=== PATIENT | male | born 1945 | race Caucasian/White ===

== ENCOUNTER 2021-12-17 04:57 | Inpatient (IN) | payer MEDICARE, OTHER ==
[2021-12-17] VITALS (54 sets, daily range): BP systolic 84–142; BP diastolic 26–99
[~2021-12-17] VITALS: Ht 172.7 cm; Wt 74.8 kg
--- NOTE | 2021-12-17 05:05 | NUR ---
BIBRA[facility] FROM [facility] FOR HYPOTENSION 88/59 AT SNF, UPON TRIAGE 91/58 TEMP 101.8 MORE ALTERED THEN NORMAL PER FACILITY. PATIENT NON VERBAL A&OX1 BROUGHT IN BY STRETCHER ON BED 08 ON MONITOR AND POX AWAITING MD MULLINS.
--- NOTE | 2021-12-17 05:07 | NUR ---
COVID SWAB COLLECTED SENT TO LAB
--- NOTE | 2021-12-17 05:07 | NUR ---
IV LINE ESTABLISHED, LFA20G
[2021-12-17] MEDS ORDERED: PIPERACILLIN /TAZOBACTAM 3.375 G VIAL IV ONE (05:22)
[2021-12-17] MEDS ORDERED: VANCOMYCIN 1 GM VIAL ONE (05:22)
--- NOTE | 2021-12-17 05:25 | NUR ---
ER INTERCELL CONNECTOR PLACER AT BEDSIDE FOR BLOOD DRAW
--- NOTE | 2021-12-17 05:25 | NUR ---
URINE COLLECTED AND SENT TO LAB
[2021-12-17] MEDS ORDERED: IV NS 0.9% 1,000 ML BAG IV ONE ×2 (05:30→06:00)
[2021-12-17] MEDS ORDERED: ACETAMINOPHEN 650 MG/SUPP.RECT RC ONE ×2 (05:30→05:36)
[2021-12-17] MEDS ORDERED: PIPERACILLIN /TAZOBACTAM 3.375 G in IV D5W 50 ML IV ONE (05:30)
[2021-12-17] MEDS ORDERED: VANCOMYCIN 1 GM in IV D5W 250 ML IV ONE (05:30)
--- NOTE | 2021-12-17 05:37 | NUR ---
XRAY AT BEDSIDE
[2021-12-17 05:46] LABS: BASOPHILS % (AUTO) 0.1 % (0.0-2.0); HEMATOCRIT 44 % (39-51); HEMOGLOBIN 14.5 g/dL (13.5-17.5); LYMPHOCYTES # (AUTO) 0.3 K/uL (0.8-4.8); LYMPHOCYTES % (AUTO) 3.3 % (20.0-44.0); MEAN CORPUSCULAR HGB CONC 33 g/dl (31.0-36.0); MEAN CORPUSCULAR VOLUME 89 fL (80-96); MONOCYTES # (AUTO) 0.3 K/uL (0.1-1.30); NEUTROPHILS # (AUTO) 7.2 K/uL (1.8-8.9); NEUTROPHILS % (AUTO) 92.6 % (43.0-81.0); PLATELET COUNT (AUTO) 93 K/uL (150-450); RED BLOOD CELL COUNT(AUTO) 4.94 MIL/uL (4.5-6.0); WHITE BLOOD COUNT (AUTO) 7.8 K/uL (4.3-11.0)
[2021-12-17 05:47] LABS: CALCIUM, SERUM 9.1 mg/dL (8.5-10.1); CARBON DIOXIDE 23 mmol/L (21-32); CHLORIDE 105 mmol/L (98-107); CREATININE 2.7 mg/dL (0.6-1.3); GLUCOSE 330 mg/dL (74-106); POTASSIUM 4.4 mmol/L (3.5-5.1); SODIUM SERUM 140 mmol/L (136-145); UREA NITROGEN, BLOOD 70 mg/dL (7-18)
[2021-12-17 05:54] LABS: BILIRUBIN,URINE NEGATIVE (NEGATIVE); COLOR,URINE YELLOW (YELLOW); LEUKOCYTE ESTERASE ,URINE NEGATIVE (NEGATIVE); NITRITE, URINE NEGATIVE (NEGATIVE); PH,URINE 5.5 (5.0-8.0); PROTEIN,URINE TRACE mg/dl (NEGATIVE); UGLUCOSE >=1000 mg/dL (NEGATIVE); UROBILINOGEN,URINE 0.2 EU/dL (0.2)
--- NOTE | 2021-12-17 05:56 | NUR ---
TROP 418 LACTIC ACID 4.04
[2021-12-17] MEDS ORDERED: ONDANSETRON HCL/PF 4 MG/2 ML VIAL ONE (05:57)
[2021-12-17] MEDS ORDERED: ASPIRIN 300 MG/SUPP.RECT RC ONE ×2 (06:00→06:06)
[2021-12-17] MEDS ORDERED: ONDANSETRON HCL/PF 4 MG/2 ML VIAL IV ONE (06:00)
[2021-12-17 06:01] LABS: ALANINE AMINOTRANSFERASE 25 U/L (12-78); ALBUMIN 2.3 g/dL (3.4-5.0); ALKALINE PHOSPHATASE 90 U/L (46-116); ASPARTATE AMINOTRANSFERASE 12 U/L (15-37); BILIRUBIN,DIRECT 0.2 mg/dL (0.0-0.2); BILIRUBIN,TOTAL 0.5 mg/dL (0.2-1.0)
--- NOTE | 2021-12-17 06:07 | NUR ---
FAXED EKG TO [facility]
--- NOTE | 2021-12-17 06:27 | NUR ---
CALLED [facility] SPOKE WITH ALYSE. EKG SENT TO MANAGER COMBINATION DR DURAN, AWAITING A CALL BACK FOR CONSULT.
--- NOTE | 2021-12-17 06:33 | NUR ---
CONSET FOR PICC LINE SIGNED
--- NOTE | 2021-12-17 06:34 | NUR ---
ASAEL LEMOS CALLED FOR PICC NURSE
[2021-12-17] MEDS ORDERED: HEPARIN SODIUM, PORCINE 5000 UNITS/1 ML VIAL IV ONE (07:00)
[2021-12-17] MEDS ORDERED: HEPARIN INFUSION/D5W 500 ML IV ONE ×2 (07:00→07:21)
[2021-12-17] MEDS ORDERED: HEPARIN SODIUM, PORCINE 5000 UNITS/1 ML VIAL ONE (07:04)
--- NOTE | 2021-12-17 07:29 | NUR ---
HEPARIN DRIP STARTED AT 1026 U/H RATE 20.52 ML
--- NOTE | 2021-12-17 07:38 | NUR ---
BED 253
--- NOTE | 2021-12-17 07:45 | NUR ---
MOVE SHEET SUBMITTED.
--- NOTE | 2021-12-17 07:47 | NUR ---
PICC LINE NURSE AT BEDSIDE.
[2021-12-17] MEDS ORDERED: FAMO20TA8 PO (07:56)
[2021-12-17] MEDS ORDERED: ESCI10TA PO (07:56)
[2021-12-17] MEDS ORDERED: FOLI0.8T2 PO (07:56)
[2021-12-17] MEDS ORDERED: SENN-261 PO (07:56)
[2021-12-17] MEDS ORDERED: AMIO200T5 PO (07:56)
[2021-12-17] MEDS ORDERED: ATOR10TA PO (07:56)
[2021-12-17] MEDS ORDERED: BISA10SU11 RC (07:56)
[2021-12-17] MEDS ORDERED: DOCU-141 PO (07:56)
[2021-12-17] MEDS ORDERED: DIVA500T54 PO (07:56)
[2021-12-17] MEDS ORDERED: RIVA10TA PO (07:56)
[2021-12-17] MEDS ORDERED: RISP0.2515 PO (07:56)
[2021-12-17] MEDS ORDERED: ACET-2605 PO (07:56)
[2021-12-17] MEDS ORDERED: IPRA3AMP23 IH (07:56)
[2021-12-17] MEDS ORDERED: AMIN30LI2 PO (07:56)
[2021-12-17] MEDS ORDERED: MAGN400O6 PO (07:56)
[2021-12-17] MEDS ORDERED: NA P133E RC (07:56)
[2021-12-17] MEDS ORDERED: PRED20TA PO (07:56)
[2021-12-17] MEDS ORDERED: ASCO-495 PO (07:56)
[2021-12-17] MEDS ORDERED: NOREPINEPHRINE 8 MG in IV NS 0.9% 242 ML IV PRN ×2 (08:00→08:30)
--- NOTE | 2021-12-17 08:00 | NUR ---
[facility] CALLED ORACLE TECHNICAL ARCHITECT PAGED.
[2021-12-17 08:07] LABS: BAND % (MANUAL) 12 % (0.0-5.0); LYMPHOCYTES % (MANUAL) 6 % (16-48); MONOCYTES % (MANUAL) 5 % (0-11.0); NEUTROPHILS % (MANUAL) 77 (42-76)
--- NOTE | 2021-12-17 08:28 | NUR ---
LACTIC ACID IS 5.6 TRIPONIN 412.6 MD NOTIFIED.
[2021-12-17] MEDS ORDERED: ACETAMINOPHEN ES 500 MG TABLET PO PRN (09:30)
[2021-12-17] MEDS ORDERED: MAGNESIUM HYDROXIDE 30 ML UDC PO PRN (09:30)
[2021-12-17] MEDS ORDERED: ASCORBIC ACID 250 MG TABLET PO SCH (09:30)
[2021-12-17] MEDS ORDERED: BISACODYL SUPP (10 MG) 10 MG/SUPP.RECT SUPP.RECT RC PRN (09:30)
--- NOTE | 2021-12-17 10:40 | NUR ---
REPORT GIVEN TO RAJINDER, CLIENT EXPERIENCE ADMINISTRATOR
--- NOTE | 2021-12-17 10:48 | NUR ---
ADMITTED PT. FROM E.R , A/O X1 TO NAME; ON HEPARIN DRIP AT 1026 UNITS/HR AND LEVO DRIP AT 0.2MCG/KG/MIN, REPORT GIVEN BY ELVIA /KEEGAN. NC AT 2LPM AT 93%O2SAT.WILL CONTINUE PT. MONITORING.
--- NOTE | 2021-12-17 10:59 | NUR ---
PT TRANSFERRED TO 253 VIA ACLS PROTOCOL. WARM HANDOFF GIVEN TO KEEGAN CALVILLO.
[2021-12-17] MEDS: DOCUSATE SODIUM 100 MG CAPSULE PO SCH (11:00)
[2021-12-17] MEDS: FAMOTIDINE (20 MG) 20 MG TABLET PO SCH (11:00)
[2021-12-17] MEDS: AMIODARONE HCL 200 MG TABLET PO SCH (11:00)
[2021-12-17] MEDS: ESCITALOPRAM OXALATE (10 MG) 10 MG TABLET PO SCH (11:00)
[2021-12-17] MEDS: ASCORBIC ACID 500 MG TABLET PO SCH (11:00)
[2021-12-17] MEDS: predniSONE 20 MG TABLET PO SCH (11:00)
[2021-12-17] MEDS ORDERED: HYDROCODONE/APAP 5/325MG TABLET PO PRN (11:30)
[2021-12-17] MEDS ORDERED: ONDANSETRON HCL/PF 4 MG/2 ML VIAL IVP PRN (11:30)
[2021-12-17] MEDS ORDERED: ACETAMINOPHEN 325 MG TABLET PO PRN (11:30)
[2021-12-17] MEDS ORDERED: Z GUARD REMEDY 4 OZ OINT TP PRN (11:30)
[2021-12-17] MEDS: NOREPINEPHRINE 8 MG in IV NS 0.9% 242 ML IV PRN ×3 (11:56→23:06)
--- NOTE | 2021-12-17 12:03 | NUR ---
DR. TIKI Elaine. SEEN PT. , MD WITH NEW ORDER NOTED FOR BEDSIDE SWALLOW EVAL AND HOLD DUE ORAL MEDS AND DIET IF PT. FAILS SWALLOW TEST.
--- NOTE | 2021-12-17 12:19 | NUR ---
DR. TIKI Nguyen WAS NOTIFIED VIA MESSAGE REGARDING CURRENT TROPONIN LEVEL = 416.
--- NOTE | 2021-12-17 12:23 | NUR ---
DR. TIKI Nguyen - NO NEW ORDER REGARDING CURRENT TROPONIN LEVEL = 416.
[2021-12-17] MEDS: MEROPENEM 500 MG in IV NS 0.9% 50 ML IV SCH ×2 (12:49→23:29)
[2021-12-17] MEDS: IV NS 0.9% 1,000 ML IV PRN (12:49)
[2021-12-17] MEDS: PROSTAT (PYXIS) 30 ML UDC PO SCH ×2 (13:00→17:00)
[2021-12-17] MEDS: ALBUTEROL FS 2.5 MG/3 ML VIAL.NEB NEB SCH ×2 (13:30→19:49)
[2021-12-17] MEDS: IPRATROPIUM NEB FS 0.5 MG/2.5 ML AMPUL.NEB NEB SCH ×2 (13:30→19:49)
--- NOTE | 2021-12-17 14:30 | NUR ---
PATIENT FAILED BEDSIDE SWALLOW EVAL SCREENING TEST. PT. STARTED COUGHING WHEN TEST INITIATED WITH ICE CHIPS AND SIP OF WATER. PT. NO ACUTE DISTRESS NOTED.
--- NOTE | 2021-12-17 15:08 | NUR ---
DR TIKI Nguyen MADE AWARE OF THE FAILED BEDSIDE SWALLOW TEST, NEW MD ORDER FOR ST SWALLOW EVAL NOTED.
[2021-12-17] MEDS: risperiDONE 1 MG TABLET PO SCH (17:00)
[2021-12-17] MEDS: DIVALPROEX SODIUM 500 MG TABLET.DR PO SCH (18:00)
[2021-12-17] MEDS: ATORVASTATIN 10 MG TABLET PO SCH (18:00)
[2021-12-17] MEDS: HEPARIN INFUSION/D5W 500 ML IV PRN (18:29)
[2021-12-17] MEDS: SENNOSIDES 8.6 MG TABLET PO SCH (20:23)
--- NOTE | 2021-12-17 21:48 | NUR ---
GEAR TOOTH GRINDING MACHINE OPERATOR PT NOTED TO GO INTO RAPID AFIB HR 150s; OBTAINED EKG NOTIFIED LYNDON BAIRES; RCD ORDERS FOR AMIO DRIP.
[2021-12-17] MEDS ORDERED: AMIODARONE 150 MG/3 ML VIAL IV ONE (21:55)
[2021-12-17] MEDS ORDERED: AMIODARONE 150 MG in IV D5W 100 ML IV ONE ×4 (22:00)
[2021-12-17] MEDS ORDERED: ZOLPIDEM TARTRATE 5 MG TABLET PO PRN (22:00)
[2021-12-17] MEDS ORDERED: AMIODARONE 450 MG in IV D5W 241 ML IV PRN (22:00)
[2021-12-17] MEDS: AMIODARONE 450 MG in IV D5W 241 ML IV PRN (22:16)
--- NOTE | 2021-12-17 22:45 | NUR ---
RAC SPECIALIST PT NOTED LETHARGIC W/ INCREASED RR; ABG ORDERED. RESULTS RELAYED TO CCATALAN VOTING MACHINE REPAIRER.
[2021-12-17 22:56] LABS: ABG BASE EXCESS -5.2 mmol/L; ABG OXYGEN SATURATION 95.4 % (92.0-98.5); ABG PCO2 31.5 mmHg (35.0-45.0); ABG PO2 79.9 mmHg (75.0-100.0); AaDO2 82.6 mmHg; COHb 0.7 % (0.5-1.5); MetHb 0.5 % (0.0-1.5); O2Hb 94.3 % (94.0-97.0); SITE, ABG Left Radial; VENT MODE, BG NC 2L
--- NOTE | 2021-12-17 23:30 | NUR ---
CUPOLA PATCHER HELPER PT NOTED NSR ON MONITOR
[2021-12-18] VITALS (94 sets, daily range): BP systolic 86–132; BP diastolic 45–74
[2021-12-18] MEDS: ALBUTEROL FS 2.5 MG/3 ML VIAL.NEB NEB SCH ×5 (01:38→20:04)
[2021-12-18] MEDS: IPRATROPIUM NEB FS 0.5 MG/2.5 ML AMPUL.NEB NEB SCH ×5 (01:38→20:04)
[2021-12-18] MEDS: IV NS 0.9% 1,000 ML IV PRN ×2 (01:45→15:09)
[2021-12-18 05:12] LABS: BASOPHILS % (AUTO) 0.1 % (0.0-2.0); EOSINOPHILS % (AUTO) 0.1 % (0.0-6.0); HEMATOCRIT 37 % (39-51); LYMPHOCYTES # (AUTO) 0.3 K/uL (0.8-4.8); LYMPHOCYTES % (AUTO) 2.8 % (20.0-44.0); MEAN CORPUSCULAR HGB CONC 33 g/dl (31.0-36.0); MEAN CORPUSCULAR VOLUME 90 fL (80-96); MONOCYTES # (AUTO) 0.4 K/uL (0.1-1.30); MONOCYTES % (AUTO) 4.1 % (2.0-12.0); NEUTROPHILS # (AUTO) 8.4 K/uL (1.8-8.9); NEUTROPHILS % (AUTO) 92.9 % (43.0-81.0); PLATELET COUNT (AUTO) 84 K/uL (150-450); RED BLOOD CELL COUNT(AUTO) 4.09 MIL/uL (4.5-6.0)
[2021-12-18 05:40] LABS: ALANINE AMINOTRANSFERASE 20 U/L (12-78); ALBUMIN 1.7 g/dL (3.4-5.0); ALKALINE PHOSPHATASE 70 U/L (46-116); ASPARTATE AMINOTRANSFERASE 13 U/L (15-37); BILIRUBIN,TOTAL 0.4 mg/dL (0.2-1.0); CALCIUM, SERUM 8.2 mg/dL (8.5-10.1); CARBON DIOXIDE 22 mmol/L (21-32); CHLORIDE 110 mmol/L (98-107); CREATININE 2.9 mg/dL (0.6-1.3); PHOSPHORUS 5.8 mg/dL (2.5-4.9); POTASSIUM 4.2 mmol/L (3.5-5.1); SODIUM SERUM 142 mmol/L (136-145); TOTAL PROTEIN, SERUM 5.1 g/dL (6.4-8.2); UREA NITROGEN, BLOOD 73 mg/dL (7-18)
[2021-12-18 05:49] LABS: CHOLESTEROL 80 mg/dL (<200); GLUCOSE 365 mg/dL (74-106); HDL CHOLESTEROL 14 mg/dL (40-60); LDL 17 mg/dL (0-99); THYROID STIMULATING HORMONE 0.621 uIU/mL (0.358-3.74); TRIGLYCERIDES 251 mg/dL (30-150)
[2021-12-18] MEDS: AMIODARONE 450 MG in IV D5W 241 ML IV PRN (06:45)
--- NOTE | 2021-12-18 07:23 | NUR ---
WOUND CARE CONSULT: PT SLEEPING SOUNDLY AT THIS TIME. REVIEWED CHART, NURSING DOCUMENTATION AND PHOTOS WHICH INDICATE SACRAL DEEP TISSUE INJURY (INTACT) AND SCARRING WELL REDNESS TO GROIN FOLDS/SCROTUM, PRESENT ON ADMISSION. RECOMMENDATIONS MADE FOR SKIN PROTECTION. DISCUSSED WITH NURSING STAFF. MD IN AGREEMENT WITH PLAN OF CARE.
[2021-12-18] MEDS ORDERED: DEXTROSE 50%-WATER 50 ML DISP.SYRIN IV PRN (07:30)
--- NOTE | 2021-12-18 07:45 | NUR ---
ICU/RN PT IS RESTING IN THE BED ON 2L N/C SAT O2-97%.AFEBRILE.ON LEVOPHED ,AMIODARONE,AND HEPARIN DRIPS .RIGHT CHEST HD CATH.LEFT UPPER ARM PICC LINE.DIAPER ON.LABS REVIEW.MD NOTIFIED.CONTINUE MONITORING.
[2021-12-18] MEDS: risperiDONE 1 MG TABLET PO SCH ×2 (08:19→16:05)
[2021-12-18] MEDS: VIT B CMPLX 3/FA/VIT C/BIOTIN 1 TAB TABLET PO SCH (08:19)
[2021-12-18] MEDS: predniSONE 20 MG TABLET PO SCH (08:20)
[2021-12-18] MEDS: DOCUSATE SODIUM 100 MG CAPSULE PO SCH (08:20)
[2021-12-18] MEDS: ASCORBIC ACID 500 MG TABLET PO SCH (08:20)
[2021-12-18] MEDS: PANTOPRAZOLE 40 MG TABLET.DR PO SCH (08:20)
[2021-12-18] MEDS: AMIODARONE HCL 200 MG TABLET PO SCH (08:20)
[2021-12-18] MEDS: ESCITALOPRAM OXALATE (10 MG) 10 MG TABLET PO SCH (08:20)
[2021-12-18] MEDS: FAMOTIDINE (20 MG) 20 MG TABLET PO SCH (08:20)
[2021-12-18] MEDS: CLOTRIMAZOLE 1% 15 GM TUBE TP SCH ×2 (08:22→11:24)
[2021-12-18] MEDS: PROSTAT (PYXIS) 30 ML UDC PO SCH ×3 (08:23→17:15)
--- NOTE | 2021-12-18 09:32 | NUR ---
ICU/RN DUE MEDS ARE GIVEN ORDERED. SWALLOW EVAL DONE ,OK TO GIVE PURRED FOOD.NO STRAW.
[2021-12-18 09:35] LABS: BAND % (MANUAL) 28 % (0.0-5.0); LYMPHOCYTES % (MANUAL) 3 % (16-48); METAMYELOCYTES % 2 % (0-0); MONOCYTES % (MANUAL) 5 % (0-11.0); MYELOCYTES % 2 % (0-0); NEUTROPHILS % (MANUAL) 60 (42-76)
[2021-12-18] MEDS: BLOOD SUGAR DIAGNOSTIC 1 EACH STRIP IN SCH ×3 (11:19→23:34)
[2021-12-18] MEDS: MEROPENEM 500 MG in IV NS 0.9% 50 ML IV SCH ×2 (11:19→23:29)
[2021-12-18] MEDS: INSULIN REGULAR, HUMAN 100 UNIT/ML 3 ML VIAL SQ PRN ×3 (11:21→23:39)
[2021-12-18] MEDS: HEPARIN INFUSION/D5W 500 ML IV PRN (11:52)
[2021-12-18] MEDS ORDERED: NEPRO VAN 237 ML CAN PO PRN (12:00)
[2021-12-18] MEDS ORDERED: VANCOMYCIN 500 MG in IV D5W 100 ML IV PRN (12:00)
[2021-12-18] MEDS: DIVALPROEX SODIUM 500 MG TABLET.DR PO SCH (17:14)
[2021-12-18] MEDS: ATORVASTATIN 10 MG TABLET PO SCH (17:14)
--- NOTE | 2021-12-18 17:30 | NUR ---
ICU/RN PM CARE PROVIDED.DUE MEDS ARE GIVEN ORDERED.PT EATS 75% FROM HIS MEAL TRAY.CONTINUE MONITORING
--- NOTE | 2021-12-18 19:49 | NUR ---
RN NOTE RECEIVED PT SLEEPING, AROUSES EASILY, AOX1. O2 O2 AT 2L VIA NC, NOT IN ANY DISTRESS. SR ON TELE MONITOR. AFEBRILE. ON AMIODARONE DRIP 0.5MG/MIN, HEPARIN DRIP 630U/HR, LEVOPHED AT 0.04MCG/KG/MIN AND IVF NS 75ML/HR RUNNING. CLIFF PICC PATENT AND INTACT, LCW HD CATH INTACT. ALL SAFETY MEASURES IN PLACE. WILL CONTINUE TO MONITOR.
[2021-12-18] MEDS: NOREPINEPHRINE 8 MG in IV NS 0.9% 242 ML IV PRN (20:47)
[2021-12-18] MEDS: SENNOSIDES 8.6 MG TABLET PO SCH (21:13)
[2021-12-19] VITALS (98 sets, daily range): BP systolic 85–134; BP diastolic 30–80
[2021-12-19] MEDS: ALBUTEROL FS 2.5 MG/3 ML VIAL.NEB NEB SCH ×4 (02:00→20:02)
[2021-12-19] MEDS: IPRATROPIUM NEB FS 0.5 MG/2.5 ML AMPUL.NEB NEB SCH ×4 (02:00→20:02)
[2021-12-19 04:41] LABS: BASOPHILS % (AUTO) 0.2 % (0.0-2.0); EOSINOPHILS % (AUTO) 0.1 % (0.0-6.0); HEMATOCRIT 32 % (39-51); HEMOGLOBIN 10.8 g/dL (13.5-17.5); LYMPHOCYTES # (AUTO) 0.2 K/uL (0.8-4.8); LYMPHOCYTES % (AUTO) 4.3 % (20.0-44.0); MEAN CORPUSCULAR HGB CONC 33 g/dl (31.0-36.0); MEAN CORPUSCULAR VOLUME 89 fL (80-96); MONOCYTES # (AUTO) 0.2 K/uL (0.1-1.30); MONOCYTES % (AUTO) 3.6 % (2.0-12.0); NEUTROPHILS # (AUTO) 4.6 K/uL (1.8-8.9); NEUTROPHILS % (AUTO) 91.8 % (43.0-81.0); PLATELET COUNT (AUTO) 71 K/uL (150-450); RED BLOOD CELL COUNT(AUTO) 3.63 MIL/uL (4.5-6.0)
--- NOTE | 2021-12-19 05:28 | NUR ---
RN NOTE PTT 47.8. NO CHANGES ON DOSE PER PROTOCOL, CONTINUE ON HEPARIN DRIP AT 630 U/HR.
[2021-12-19 05:37] LABS: ALANINE AMINOTRANSFERASE 35 U/L (12-78); ALBUMIN 1.6 g/dL (3.4-5.0); ASPARTATE AMINOTRANSFERASE 17 U/L (15-37); CALCIUM, SERUM 8.4 mg/dL (8.5-10.1); CARBON DIOXIDE 23 mmol/L (21-32); CHLORIDE 113 mmol/L (98-107); CREATININE 2.7 mg/dL (0.6-1.3); GLUCOSE 132 mg/dL (74-106); PHOSPHORUS 4.9 mg/dL (2.5-4.9); SODIUM SERUM 146 mmol/L (136-145); UREA NITROGEN, BLOOD 71 mg/dL (7-18)
[2021-12-19] MEDS: BLOOD SUGAR DIAGNOSTIC 1 EACH STRIP IN SCH ×3 (05:47→17:45)
--- NOTE | 2021-12-19 05:48 | NUR ---
RN NOTE PT AWAKE, FSBS 96. NO INSULIN COVERAGE.
[2021-12-19 05:56] LABS: ALKALINE PHOSPHATASE 67 U/L (46-116); BILIRUBIN,TOTAL 0.2 mg/dL (0.2-1.0); TOTAL PROTEIN, SERUM 5.1 g/dL (6.4-8.2)
[2021-12-19] MEDS: IV NS 0.9% 1,000 ML IV PRN ×2 (05:57→17:54)
--- NOTE | 2021-12-19 07:11 | NUR ---
RN NOTE PT KEPT ON ASKING FOR WATER, ON NECTAR THICKENED LIQUIDS. TOLERATES O2 AT 2L. NOT IN ANY DISTRESS. CONTINUE WITH LEVOPHED NOW ON 0.02MCG/KG/MIN AND NS AT 75 ML/HR. PT WITH CONDOM CATH, WITH GOOD AMOUNT OF URINE OUTPUT. PT REMAIN AFEBRILE. PT SCHEDULED FOR HD TODAY, BLOOD CULTURE WITH HD. ENDORSED TO RAJINDER FOR DURGA.
[2021-12-19] MEDS: ASCORBIC ACID 500 MG TABLET PO SCH (08:13)
[2021-12-19] MEDS: DOCUSATE SODIUM 100 MG CAPSULE PO SCH (08:13)
[2021-12-19] MEDS: risperiDONE 1 MG TABLET PO SCH ×2 (08:14→17:52)
[2021-12-19] MEDS: ESCITALOPRAM OXALATE (10 MG) 10 MG TABLET PO SCH (08:14)
[2021-12-19] MEDS: VIT B CMPLX 3/FA/VIT C/BIOTIN 1 TAB TABLET PO SCH (08:14)
[2021-12-19] MEDS: FAMOTIDINE (20 MG) 20 MG TABLET PO SCH (08:14)
[2021-12-19] MEDS: predniSONE 20 MG TABLET PO SCH (08:14)
[2021-12-19] MEDS: PANTOPRAZOLE 40 MG TABLET.DR PO SCH (08:14)
[2021-12-19] MEDS: AMIODARONE HCL 200 MG TABLET PO SCH (08:15)
[2021-12-19] MEDS: CLOTRIMAZOLE 1% 15 GM TUBE TP SCH ×2 (08:16→17:53)
[2021-12-19] MEDS: PROSTAT (PYXIS) 30 ML UDC PO SCH ×3 (08:17→17:52)
[2021-12-19 08:59] LABS: BAND % (MANUAL) 18 % (0.0-5.0); LYMPHOCYTES % (MANUAL) 7 % (16-48); METAMYELOCYTES % 2 % (0-0); MONOCYTES % (MANUAL) 5 % (0-11.0); MYELOCYTES % 2 % (0-0); NEUTROPHILS % (MANUAL) 66 (42-76)
--- NOTE | 2021-12-19 09:40 | NUR ---
HEMODIALYSIS TREATMENT STARTED; NO ACUTE DISTRESS NOTED.
--- NOTE | 2021-12-19 11:55 | NUR ---
PT HEART RATE 127 NOW. WILL CONTINUE TO MONITOR
--- NOTE | 2021-12-19 12:00 | NUR ---
HEMODIALYSIS SESSION DONE, OUTPUT=1.5 LITERS. HR RANGING AND FLUCTUATING FROM 127-150s. WILL NOTIFY MD, NO ACUTE DISTRESS NOTED.
--- NOTE | 2021-12-19 12:02 | NUR ---
DR. POOLE WAS NOTIFIED OF HEART RHYTHM FROM SR TO NOW AFIB AND HR RANGING AND FLUCTUATING 125-150s; AND AWARE OF LEVO DRIP RUNNING AT 0.04 MCG NOW. BP = 94/65. WITH NEW ORDER OF AMIO BOLUS AND DRIP. ALL ORDERS NOTED AND WILL CARRY OUT.
[2021-12-19] MEDS: MEROPENEM 500 MG in IV NS 0.9% 50 ML IV SCH (12:27)
[2021-12-19] MEDS ORDERED: AMIODARONE 150 MG in IV D5W 100 ML IV ONE (12:30)
[2021-12-19] MEDS: AMIODARONE 450 MG in IV D5W 241 ML IV PRN ×2 (12:51→21:13)
[2021-12-19] MEDS ORDERED: VANCOMYCIN 1 GM in IV D5W 250ml IV ONE (13:00)
[2021-12-19] MEDS: INSULIN REGULAR, HUMAN 100 UNIT/ML 3 ML VIAL SQ PRN ×2 (13:05→17:44)
[2021-12-19] MEDS: ATORVASTATIN 10 MG TABLET PO SCH (17:52)
[2021-12-19] MEDS: DIVALPROEX SODIUM 500 MG TABLET.DR PO SCH (17:53)
--- NOTE | 2021-12-19 20:50 | NUR ---
ICU/CAR WASH ATTENDANT PT REFUSED TO BE TURNED, EXPLAINED THE BENEFITS TO REPOSITIONING SINCE PT HAS DOCUMENTATION WITH SACRAL SKIN BREAKDOWN. PT STILL REFUSED. WILL CONTINUE TO MONITOR AND ASK TO REPOSITION THIS PT.
[2021-12-19] MEDS: SENNOSIDES 8.6 MG TABLET PO SCH (22:35)
--- NOTE | 2021-12-19 22:45 | NUR ---
ICU/AUDIO VISUAL TECH BLOOD PRESSURE HAS FLUCTUATED AT THIS TIME WITH ACTIVE TITRATION, SEE IV SPREAD SHEET FOR THIS. WILL CONTINUE TO MONITOR THIS PT AND HIS BLOOD PRESSURE.
[2021-12-20] VITALS (96 sets, daily range): BP systolic 89–131; BP diastolic 41–98
--- NOTE | 2021-12-20 00:15 | NUR ---
ICU/MIXED CROP AND LIVESTOCK FARMER WAS ABLE TO TURN AND REPOSITION, PT REFUSED TO HAVE AM CARE AT THIS TIME. ASKED IF OK IN THE MORNING FOR AM CARE, PT AGREED TO THIS
[2021-12-20] MEDS: INSULIN REGULAR, HUMAN 100 UNIT/ML 3 ML VIAL SQ PRN ×5 (00:20→23:54)
[2021-12-20] MEDS: BLOOD SUGAR DIAGNOSTIC 1 EACH STRIP IN SCH ×5 (00:20→23:52)
[2021-12-20] MEDS: MEROPENEM 500 MG in IV NS 0.9% 50 ML IV SCH ×3 (00:25→23:52)
[2021-12-20] MEDS: IPRATROPIUM NEB FS 0.5 MG/2.5 ML AMPUL.NEB NEB SCH ×4 (01:58→19:44)
[2021-12-20] MEDS: ALBUTEROL FS 2.5 MG/3 ML VIAL.NEB NEB SCH ×4 (01:58→19:44)
--- NOTE | 2021-12-20 02:35 | NUR ---
ICU/CIDER MAKER PT REFUSED TO BE TURNED FOR A SECOND TIME, EXPLAINED TO PT THE BENEFITS TO REPOSITIONING SINCE PT HAS DOCUMENTATION WITH SACRAL SKIN BREAKDOWN. PT AT THIS TIME STILL REFUSED. PLACED PILLOW OVER FACE AND SAID "GOOD NIGHT" WILL CONTINUE TO MONITOR AND ASK TO PT TO BE REPOSITIONED.
[2021-12-20] MEDS ORDERED: NOREPINEPHRINE 8MG/250ML RTU 250 ML IV ONE (03:33)
[2021-12-20] MEDS: NOREPINEPHRINE 8 MG in IV NS 0.9% 242 ML IV PRN (03:37)
[2021-12-20] MEDS: IV NS 0.9% 1,000 ML IV PRN ×2 (04:13→16:49)
[2021-12-20 04:14] LABS: CALCIUM, SERUM 7.9 mg/dL (8.5-10.1); CARBON DIOXIDE 23 mmol/L (21-32); CHLORIDE 105 mmol/L (98-107); CREATININE 2.1 mg/dL (0.6-1.3); GLUCOSE 266 mg/dL (74-106); POTASSIUM 3.8 mmol/L (3.5-5.1); SODIUM SERUM 138 mmol/L (136-145); UREA NITROGEN, BLOOD 47 mg/dL (7-18)
[2021-12-20 04:18] LABS: BASOPHILS % (AUTO) 0.1 % (0.0-2.0); EOSINOPHILS % (AUTO) 0.1 % (0.0-6.0); HEMATOCRIT 30 % (39-51); LYMPHOCYTES # (AUTO) 0.3 K/uL (0.8-4.8); LYMPHOCYTES % (AUTO) 5.8 % (20.0-44.0); MEAN CORPUSCULAR HGB CONC 33 g/dl (31.0-36.0); MEAN CORPUSCULAR VOLUME 89 fL (80-96); MONOCYTES # (AUTO) 0.2 K/uL (0.1-1.30); MONOCYTES % (AUTO) 4.1 % (2.0-12.0); NEUTROPHILS # (AUTO) 4.5 K/uL (1.8-8.9); NEUTROPHILS % (AUTO) 89.9 % (43.0-81.0); PLATELET COUNT (AUTO) 80 K/uL (150-450); RED BLOOD CELL COUNT(AUTO) 3.38 MIL/uL (4.5-6.0)
[2021-12-20 04:23] LABS: MAGNESIUM 1.9 mg/dL (1.8-2.4)
[2021-12-20 04:50] LABS: IRON, SERUM 55 ug/dl (50-175); TOTAL IRON BINDING CAPACITY 84 ug/dl (250-450)
[2021-12-20] MEDS ORDERED: VANCOMYCIN 500 MG in IV D5W 100 ML IV PRN (06:00)
--- NOTE | 2021-12-20 07:26 | NUR ---
RN NOTE PATIENT RECEIVED IN BED, RESTING. PATIENT ON 2L O2 NC WITH NO SIGNS OF LABORED BREATHING SAT 97% ON BEDSIDE MONITOR. CURRENTLY AFIB ON MONITOR HR 105-110 ON AMIODARONE DRIP AT 0.5MG/MIN. RIGHT CHEST WALL PERMACATH IN PLACE. LEFT UA PICC AND LEFT FA 20G IN PLACE RUNNING LEVO AT 0.08MCG/KG/MIN BP 116/67, AMIODARONE DRIP AND NS AT 75CC/HR. BED LOCKED AND IN LOWEST POSITION, CALL LIGHT WITHIN REACH, 3 SIDE RAILS UP.
[2021-12-20] MEDS: VIT B CMPLX 3/FA/VIT C/BIOTIN 1 TAB TABLET PO SCH (08:02)
[2021-12-20] MEDS: risperiDONE 1 MG TABLET PO SCH ×2 (08:02→17:05)
[2021-12-20] MEDS: DOCUSATE SODIUM 100 MG CAPSULE PO SCH (08:02)
[2021-12-20] MEDS: predniSONE 20 MG TABLET PO SCH (08:02)
[2021-12-20] MEDS: PANTOPRAZOLE 40 MG TABLET.DR PO SCH (08:02)
[2021-12-20] MEDS: ESCITALOPRAM OXALATE (10 MG) 10 MG TABLET PO SCH (08:02)
[2021-12-20] MEDS: CLOTRIMAZOLE 1% 15 GM TUBE TP SCH ×2 (08:03→17:05)
[2021-12-20] MEDS: PROSTAT (PYXIS) 30 ML UDC PO SCH ×3 (08:03→17:05)
[2021-12-20] MEDS: ASCORBIC ACID 500 MG TABLET PO SCH (08:03)
[2021-12-20] MEDS: FAMOTIDINE (20 MG) 20 MG TABLET PO SCH (08:03)
--- NOTE | 2021-12-20 11:40 | NUR ---
RN NOTE PT CONVERTED TO NSR. AMIODARONE DRIP TO FINISH AT 1300. DR. POOLE NOTIFIED. NO NEW ORDER AT THIS TIME.
[2021-12-20] MEDS: ATORVASTATIN 10 MG TABLET PO SCH (17:04)
[2021-12-20] MEDS: DIVALPROEX SODIUM 500 MG TABLET.DR PO SCH (17:05)
--- NOTE | 2021-12-20 18:32 | NUR ---
RN NOTE PATIENT REMAINS IN BED, AWAKE. PATIENT ON 2L O2 NC WITH NO SIGNS OF LABORED BREATHING SAT 99% ON BEDSIDE MONITOR. CURRENTLY NSR ON MONITOR HR 91. RIGHT CHEST WALL PERMACATH IN PLACE. LEFT UA PICC AND LEFT FA 20G IN PLACE RUNNING NS AT 75CC/HR. BED LOCKED AND IN LOWEST POSITION, CALL LIGHT WITHIN REACH, 3 SIDE RAILS UP. ALL NEEDS ATTENDED DURING SHIFT. WILL ENDORSE TO ANIMAL STUNNER NURSE FOR DURGA.
--- NOTE | 2021-12-20 20:05 | NUR ---
RN OPENING NOTES RECEIVED PATIENT ON BED, AWAKE, A/O 3-4, VERBALLY RESPONSIVE. ON NASAL CANULA @ 2LPM SATING AT 98%. RESPIRATORY EVEN AND UNLABORED, NO SOB NOTED. AFEBRILE, NO S/S OF DISTRESS NOTED. PATIENT CLIFF PICC LINE, LEFT FOREARM #20, FLUSHED WITH NS, NO S/S OF INFILTRATION NOTED AT SITE. WITH IVF OF NS @ 75 ML/HR. RIGHT CHEST WALL PERMA CATH FOR DIALYSIS, DRESSING INTACT NO ACTIVE BLEEDING NOTED. ON CONDOM CATHETER INTACT DRAINING WITH CLEAR YELLOW URINE OUTPUT VIA GRAVITY. ALL SAFETY MEASURE PROVIDED. BED IN LOWEST POSITION, LOCKED. BED ALARM ARMED. CONTINUE TO MONITOR.
[2021-12-20] MEDS: SENNOSIDES 8.6 MG TABLET PO SCH (22:02)
[2021-12-21] VITALS (43 sets, daily range): BP systolic 98–127; BP diastolic 46–73
[2021-12-21] MEDS: IPRATROPIUM NEB FS 0.5 MG/2.5 ML AMPUL.NEB NEB SCH ×5 (01:25→20:18)
[2021-12-21] MEDS: ALBUTEROL FS 2.5 MG/3 ML VIAL.NEB NEB SCH ×5 (01:25→20:18)
[2021-12-21 04:08] LABS: EOSINOPHILS % (AUTO) 0.1 % (0.0-6.0); HEMATOCRIT 28 % (39-51); HEMOGLOBIN 9.1 g/dL (13.5-17.5); LYMPHOCYTES # (AUTO) 0.1 K/uL (0.8-4.8); MEAN CORPUSCULAR HGB CONC 33 g/dl (31.0-36.0); MEAN CORPUSCULAR VOLUME 91 fL (80-96); MONOCYTES # (AUTO) 0.1 K/uL (0.1-1.30); MONOCYTES % (AUTO) 4.5 % (2.0-12.0); NEUTROPHILS # (AUTO) 2.6 K/uL (1.8-8.9); NEUTROPHILS % (AUTO) 91.4 % (43.0-81.0); PLATELET COUNT (AUTO) 61 K/uL (150-450); RED BLOOD CELL COUNT(AUTO) 3.08 MIL/uL (4.5-6.0); WHITE BLOOD COUNT (AUTO) 2.9 K/uL (4.3-11.0)
[2021-12-21 04:32] LABS: CALCIUM, SERUM 7.9 mg/dL (8.5-10.1); CARBON DIOXIDE 24 mmol/L (21-32); CHLORIDE 108 mmol/L (98-107); GLUCOSE 229 mg/dL (74-106); MAGNESIUM 1.9 mg/dL (1.8-2.4); PHOSPHORUS 3.9 mg/dL (2.5-4.9); POTASSIUM 3.7 mmol/L (3.5-5.1); SODIUM SERUM 140 mmol/L (136-145); UREA NITROGEN, BLOOD 44 mg/dL (7-18)
[2021-12-21 04:46] LABS: BAND % (MANUAL) 14 % (0.0-5.0); BASOPHILS % (MANUAL) 0 % (0.0-2.0); EOSINOPHILS % (MANUAL) 0 % (0-4); LYMPHOCYTES % (MANUAL) 8 % (16-48); MONOCYTES % (MANUAL) 6 % (0-11.0); MYELOCYTES % 1 % (0-0); NEUTROPHILS % (MANUAL) 71 (42-76)
[2021-12-21] MEDS: BLOOD SUGAR DIAGNOSTIC 1 EACH STRIP IN SCH ×4 (05:55→23:41)
[2021-12-21] MEDS: INSULIN REGULAR, HUMAN 100 UNIT/ML 3 ML VIAL SQ PRN ×4 (05:57→23:43)
[2021-12-21] MEDS: IV NS 0.9% 1,000 ML IV PRN (06:53)
--- NOTE | 2021-12-21 07:00 | NUR ---
RN NOTES RECEIVED PT ON BED, A/Ox2, ON 2L O2 N/C , ON TELE SR HR 80'S, CONDOM CATH DRAINING TO GRAVITY, IV SITE CLEAN, DRY AND INTACT, SR UP x3, CALL LIGHT WITHIN EASY REACH, BED LOCKED AND IN LOWEST POSITION, CONTINUE TO MONITOR.
--- NOTE | 2021-12-21 07:19 | NUR ---
RN NOTES PATIENT REMAIN STABLE THROUGH OUT THE SHIFT. RESPIRATORY EVEN AND UNLABORED, NO SOB NOTED. AFEBRILE, NO S/S OF DISTRESS NOTED. WITH IVF OF NS @ 75 ML/HR. RIGHT CHEST WALL PERMA CATH FOR DIALYSIS, DRESSING INTACT NO ACTIVE BLEEDING NOTED. ON CONDOM CATHETER INTACT DRAINING WITH CLEAR YELLOW URINE OUTPUT VIA GRAVITY. ALOL DUE MEDS GIVEN. ALL SAFETY MEASURE PROVIDED. BED IN LOWEST POSITION, LOCKED. BED ALARM ARMED. REPORT GIVEN TO MORNING SHIFT NURSE FOR DURGA.
[2021-12-21] MEDS: ESCITALOPRAM OXALATE (10 MG) 10 MG TABLET PO SCH (08:04)
[2021-12-21] MEDS: PANTOPRAZOLE 40 MG TABLET.DR PO SCH (08:04)
[2021-12-21] MEDS: risperiDONE 1 MG TABLET PO SCH ×2 (08:04→17:27)
[2021-12-21] MEDS: VIT B CMPLX 3/FA/VIT C/BIOTIN 1 TAB TABLET PO SCH (08:04)
[2021-12-21] MEDS: predniSONE 20 MG TABLET PO SCH (08:04)
[2021-12-21] MEDS: ASCORBIC ACID 500 MG TABLET PO SCH (08:05)
[2021-12-21] MEDS: FAMOTIDINE (20 MG) 20 MG TABLET PO SCH (08:05)
[2021-12-21] MEDS: DOCUSATE SODIUM 100 MG CAPSULE PO SCH (08:05)
[2021-12-21] MEDS: CLOTRIMAZOLE 1% 15 GM TUBE TP SCH ×2 (08:06→17:54)
[2021-12-21] MEDS: CARVEDILOL 12.5 MG TABLET PO SCH ×2 (08:43→20:27)
[2021-12-21] MEDS: PROSOURCE / PROSTAT (PYXIS) 30 ML UDC GT SCH (08:49)
[2021-12-21] MEDS ORDERED: PROSTAT (PYXIS) 30 ML UDC PO SCH (09:00)
--- NOTE | 2021-12-21 10:14 | NUR ---
RN NOTES REPORT GIVEN TO AMARI RN FOR CONTINUITY OF CARE .
--- NOTE | 2021-12-21 10:30 | NUR ---
OVERHEAD LINE WORKER NOTE: RECEIVED PATIENT FROM ICU. HE'S IN BED, AWAKE, A/O 2-3, VERBALLY RESPONSIVE, ABLE TO MAKE NEEDS KNOWN. ON NASAL CANULA @ 1LPM SATING AT 98%. BREATHING EVEN AND UNLABORED, NO SOB NOTED. REST OF THE VS ARE FOLLOW: BP - 112/61; HR - 80; RESP - 14 BREATHS/MIN; TEMP - 96.6 F ORAL. HE'S ON TELE MONITOR THAT READS NSR WITH HR OF 87 BPM. NO S/S OF DISTRESS NOTED. DOES NOT VERBALIZE ANY PAIN. PATIENT CLIFF PICC LINE AND LEFT FOREARM #20, FLUSHED WITH NS, NO S/S OF INFILTRATION NOTED ON BOTH SITES. BOTH IV SITES ARE SALINE LOCKED. IV DRESSINGS C/D/I. RIGHT CHEST WALL PERMA CATH FOR DIALYSIS NOTED, DRESSING INTACT WITH NO ACTIVE BLEEDING NOTED. ON CONDOM CATHETER INTACT DRAINING WITH CLEAR YELLOW URINE OUTPUT VIA GRAVITY. SAFETY, FALL, ASPIRATION PRECAUTIONS IN PLACE: BED IN LOWEST AND LOCKED POSITION, HOB ELEVATED AT 30 DEGREES, BED ALARM ON, SIDE RAILS UP X2, CALL LIGHT AND BELONGINGS WITHIN EASY REACH. WILL CONTINUE TO MONITOR FOR ANY CHANGES.
[2021-12-21] MEDS: MEROPENEM 500 MG in IV NS 0.9% 50 ML IV SCH ×2 (12:36→23:33)
[2021-12-21] MEDS: DIVALPROEX SODIUM 500 MG TABLET.DR PO SCH (17:27)
[2021-12-21] MEDS: ATORVASTATIN 10 MG TABLET PO SCH (17:28)
--- NOTE | 2021-12-21 19:20 | NUR ---
GOLF BALL INSPECTOR CLOSING NOTE: PATIENT REMAINS IN BED, AWAKE, A/O 2-3, ABLE TO MAKE SIMPLE NEEDS KNOWN. ON NASAL CANULA @ 1LPM SATING AT 97% OF THIS TIME. NO S/S OF RESPIRATORY DISTRESS. PT. REMAINS ON TELE MONITOR THAT READS NSR WITH HR OF 91 BPM. S/P HD. STARTED AT 1605 AND ENDED AT 1905. HD OUTPUT IS 1L. NO COMPLAINTS OF PAIN/DISCOMFORT AT THIS TIME. PATIENT CLIFF PICC LINE AND LEFT FOREARM #20, FLUSHED WITH NS, NO S/S OF INFILTRATION NOTED ON BOTH SITES. BOTH IV SITES ARE SALINE LOCKED. IV DRESSINGS C/D/I. PT. HAS RIGHT CHEST WALL PERMA CATH FOR DIALYSIS, DRESSING INTACT WITH NO ACTIVE BLEEDING NOTED. REMAINS ON CONDOM CATHETER INTACT DRAINING CLOUDY YELLOW URINE WITH TOTAL OUTPUT OF 800 ML THIS SHIFT. SAFETY, FALL, ASPIRATION PRECAUTIONS IN PLACE: BED IN LOWEST AND LOCKED POSITION, HOB ELEVATED AT 30 DEGREES, BED ALARM ON, SIDE RAILS UP X2, CALL LIGHT AND BELONGINGS WITHIN EASY REACH. WILL ENDORSE CONTINUITY OF CARE TO SYNTHETIC FILAMENT SPINNER RN.
--- NOTE | 2021-12-21 19:30 | NUR ---
RN OPENING NOTES RECEIVED PT IN BED, AWAKE, WATCHING TV. AOx2. ON NC 1LPM AND TOLERATING WELL. NO SOB NOTED. NO S/SX OF RESPIRATORY DISTRESS NOTED. TELE MONITOR DETECTS SINUS RHYTHM WITH RATE OF 90. IV ACCESS IN CLIFF PICC LINE, LFA #20G AND RCW PERMACATH. IV IS INTACT, PATENT, AND FLUSHING WELL. SAFETY PRECAUTIONS IN PLACE: BED IN LOWEST, LOCKED POSITON, SIDERAILS UPx2, AND BRAKES ON. TABLE AND CALL LIGHT WITHIN REACH. WILL CONTINUE TO MONITOR.
--- NOTE | 2021-12-21 20:27 | NUR ---
RN NOTES DID NOT ADMINISTER CARVEDILOL BECAUSE BLOOD PRESSURE IS 106/71 AND PATIENT HAD DIALYSIS.
[2021-12-21] MEDS: SENNOSIDES 8.6 MG TABLET PO SCH (21:30)
[2021-12-22] VITALS: BP 106/61
[2021-12-22] MEDS: ALBUTEROL FS 2.5 MG/3 ML VIAL.NEB NEB SCH ×4 (02:38→20:17)
[2021-12-22] MEDS: IPRATROPIUM NEB FS 0.5 MG/2.5 ML AMPUL.NEB NEB SCH ×4 (02:39→20:17)
[2021-12-22 04:00] VITALS: BP 93/55
[2021-12-22] MEDS: BLOOD SUGAR DIAGNOSTIC 1 EACH STRIP IN SCH ×4 (05:14→23:10)
[2021-12-22] MEDS: INSULIN REGULAR, HUMAN 100 UNIT/ML 3 ML VIAL SQ PRN ×4 (05:15→23:16)
--- NOTE | 2021-12-22 06:43 | NUR ---
RN CLOSING NOTES PT IN BED, ASLEEP, AWAKENS TO VERBAL AND TACTILE STIMULI. AOx3. ON NC 1LPM AND TOLERATING WELL. NO SOB NOTED. NO S/SX OF RESPIRATORY DISTRESS NOTED. TELE MONITOR DETECTS SINUS RHYTHM WITH RATE OF 90. IV ACCESS IN CLIFF PICC LINE, LFA #20G AND RCW PERMACATH. IV IS INTACT, PATENT, AND FLUSHING WELL. ALL ORDERS CARRIED OUT. ALL NEEDS MET. PT KEPT CLEAN AND DRY. SAFETY PRECAUTIONS IN PLACE: BED IN LOWEST, LOCKED POSITON, SIDERAILS UPx2, AND BRAKES ON. TABLE AND CALL LIGHT WITHIN REACH. WILL ENDORSE TO ONCOMING SHIFT FOR DURGA.
[2021-12-22 07:16] LABS: EOSINOPHILS % (AUTO) 0.4 % (0.0-6.0); HEMATOCRIT 30 % (39-51); HEMOGLOBIN 9.7 g/dL (13.5-17.5); LYMPHOCYTES # (AUTO) 0.3 K/uL (0.8-4.8); LYMPHOCYTES % (AUTO) 8.6 % (20.0-44.0); MEAN CORPUSCULAR HGB CONC 33 g/dl (31.0-36.0); MEAN CORPUSCULAR VOLUME 89 fL (80-96); MONOCYTES # (AUTO) 0.1 K/uL (0.1-1.30); MONOCYTES % (AUTO) 4.3 % (2.0-12.0); NEUTROPHILS # (AUTO) 2.7 K/uL (1.8-8.9); NEUTROPHILS % (AUTO) 86.7 % (43.0-81.0); PLATELET COUNT (AUTO) 70 K/uL (150-450); WHITE BLOOD COUNT (AUTO) 3.1 K/uL (4.3-11.0)
[2021-12-22 07:18] LABS: CALCIUM, SERUM 8.3 mg/dL (8.5-10.1); CARBON DIOXIDE 29 mmol/L (21-32); CHLORIDE 106 mmol/L (98-107); CREATININE 1.5 mg/dL (0.6-1.3); GLUCOSE 135 mg/dL (74-106); MAGNESIUM 2.1 mg/dL (1.8-2.4); PHOSPHORUS 2.8 mg/dL (2.5-4.9); POTASSIUM 3.5 mmol/L (3.5-5.1); SODIUM SERUM 140 mmol/L (136-145); UREA NITROGEN, BLOOD 28 mg/dL (7-18)
[2021-12-22 08:00] VITALS: BP 114/55
[2021-12-22] MEDS: PANTOPRAZOLE 40 MG TABLET.DR PO SCH (08:07)
[2021-12-22] MEDS: CARVEDILOL 12.5 MG TABLET PO SCH ×2 (09:00→21:16)
[2021-12-22] MEDS: VIT B CMPLX 3/FA/VIT C/BIOTIN 1 TAB TABLET PO SCH (09:07)
[2021-12-22] MEDS: DOCUSATE SODIUM 100 MG CAPSULE PO SCH (09:07)
[2021-12-22] MEDS: FAMOTIDINE (20 MG) 20 MG TABLET PO SCH (09:08)
[2021-12-22] MEDS: ASCORBIC ACID 500 MG TABLET PO SCH (09:08)
[2021-12-22] MEDS: predniSONE 20 MG TABLET PO SCH (09:10)
[2021-12-22] MEDS: risperiDONE 1 MG TABLET PO SCH ×2 (09:10→17:39)
[2021-12-22] MEDS: ESCITALOPRAM OXALATE (10 MG) 10 MG TABLET PO SCH (09:10)
[2021-12-22] MEDS: PROSOURCE / PROSTAT (PYXIS) 30 ML UDC GT SCH (09:15)
[2021-12-22] MEDS: CLOTRIMAZOLE 1% 15 GM TUBE TP SCH ×2 (09:16→18:28)
[2021-12-22 10:51] LABS: BAND % (MANUAL) 23 % (0.0-5.0); EOSINOPHILS % (MANUAL) 1 % (0-4); LYMPHOCYTES % (MANUAL) 15 % (16-48); METAMYELOCYTES % 1 % (0-0); MONOCYTES % (MANUAL) 4 % (0-11.0); NEUTROPHILS % (MANUAL) 56 (42-76)
--- NOTE | 2021-12-22 11:42 | NUR ---
RN Notes PT Alert and oriented, states no discomfort but hungry. Able to express concerns, breakfast at bedside, fed patient and used thickener as needed. Good Appetite! consumed 100% of his food. Vitals signs stable. Bed at lowest position and call light within reach. Addendum: 12/22/21 at 1146 by GIULIA PORTILLO RN Late [id number]
[2021-12-22] MEDS: MEROPENEM 500 MG in IV NS 0.9% 50 ML IV SCH ×2 (12:12→23:11)
[2021-12-22 14:48] VITALS: BP 105/64
[2021-12-22 17:34] VITALS: BP 113/65
[2021-12-22] MEDS: DIVALPROEX SODIUM 500 MG TABLET.DR PO SCH (17:39)
[2021-12-22] MEDS: ATORVASTATIN 10 MG TABLET PO SCH (17:40)
--- NOTE | 2021-12-22 18:26 | NUR ---
RN CLOSING NOTES Pt AOx4, states no distress, no discomfort. VSS, ate 100% of every meal. Pt was compliant throughout the day, able to express his concerns. No incidents throughout shift, bed at lowest position, call light at pts reach.
[2021-12-22 20:00] VITALS: BP 117/71
--- NOTE | 2021-12-22 20:02 | NUR ---
RN OPENING NOTES PT IN BED, ASLEEP, AWAKENS TO VERBAL AND TACTILE STIMULI. AOx2. ON NC 1LPM AND TOLERATING WELL. NO SOB NOTED. NO S/SX OF RESPIRATORY DISTRESS NOTED. TELE MONITOR DETECTS SINUS RHYTHM WITH RATE OF 80S. IV ACCESS IN CLIFF PICC LINE, LFA #20G AND RCW PERMACATH. IV IS INTACT, PATENT, AND FLUSHING WEL. ALL NEEDS MET. PT KEPT CLEAN AND DRY. SAFETY PRECAUTIONS IN PLACE: BED IN LOWEST, LOCKED POSITION, SIDE RAILS UPx2, AND BRAKES ON. TABLE AND CALL LIGHT WITHIN REACH. WILL CONTINUE TO MONITOR.
--- NOTE | 2021-12-22 20:29 | NUR ---
RT PT RECVD ON 1 LPM NC ASLEEP BUT RESPONDS TO VOICE. NEB TX GIVEN, PT BRIJESH WELL. NO SOB NOTED AT THIS TIME.
[2021-12-22] MEDS: SENNOSIDES 8.6 MG TABLET PO SCH (21:16)
--- NOTE | 2021-12-22 23:17 | NUR ---
SOFTWARE DEVELOPMENT INTERN NOTES PT REFUSED INSULIN COVERAGE X3 RISK AND BENEFITS EXPLAINED X3. WILL CONTINUE TO MONITOR.
[2021-12-23] VITALS (7 sets, daily range): BP systolic 96–136; BP diastolic 62–82
[2021-12-23] MEDS: IPRATROPIUM NEB FS 0.5 MG/2.5 ML AMPUL.NEB NEB SCH ×4 (01:45→20:13)
[2021-12-23] MEDS: ALBUTEROL FS 2.5 MG/3 ML VIAL.NEB NEB SCH ×4 (01:45→20:13)
[2021-12-23] MEDS: BLOOD SUGAR DIAGNOSTIC 1 EACH STRIP IN SCH ×4 (05:16→23:08)
[2021-12-23] MEDS: INSULIN REGULAR, HUMAN 100 UNIT/ML 3 ML VIAL SQ PRN ×4 (05:19→23:19)
--- NOTE | 2021-12-23 06:35 | NUR ---
RN CLOSING NOTES PT IN BED, ASLEEP, AWAKENS TO VERBAL AND TACTILE STIMULI. AOx2. ON NC 1LPM AND TOLERATING WELL. NO SOB NOTED. NO S/SX OF RESPIRATORY DISTRESS NOTED. TELE MONITOR DETECTS SINUS RHYTHM WITH RATE OF 90S. IV ACCESS IN CLIFF PICC LINE, LFA #20G AND RCW PERMACATH. IV IS INTACT, PATENT, AND FLUSHING WEL. ALL NEEDS MET. PT KEPT CLEAN AND DRY. SAFETY PRECAUTIONS IN PLACE: BED IN LOWEST, LOCKED POSITION, SIDE RAILS UPx2, AND BRAKES ON. TABLE AND CALL LIGHT WITHIN REACH. WILL ENDORSE CARE TO DAY SHIFT NURSE.
[2021-12-23 06:49] LABS: BASOPHILS % (AUTO) 0.1 % (0.0-2.0); HEMATOCRIT 31 % (39-51); HEMOGLOBIN 10.1 g/dL (13.5-17.5); LYMPHOCYTES # (AUTO) 0.2 K/uL (0.8-4.8); LYMPHOCYTES % (AUTO) 5.4 % (20.0-44.0); MEAN CORPUSCULAR HGB CONC 33 g/dl (31.0-36.0); MEAN CORPUSCULAR VOLUME 90 fL (80-96); MONOCYTES # (AUTO) 0.1 K/uL (0.1-1.30); NEUTROPHILS # (AUTO) 3.9 K/uL (1.8-8.9); NEUTROPHILS % (AUTO) 91.5 % (43.0-81.0); PLATELET COUNT (AUTO) 83 K/uL (150-450); RED BLOOD CELL COUNT(AUTO) 3.42 MIL/uL (4.5-6.0); WHITE BLOOD COUNT (AUTO) 4.2 K/uL (4.3-11.0)
[2021-12-23 07:12] LABS: CALCIUM, SERUM 8.6 mg/dL (8.5-10.1); CARBON DIOXIDE 26 mmol/L (21-32); CHLORIDE 104 mmol/L (98-107); CREATININE 1.8 mg/dL (0.6-1.3); GLUCOSE 276 mg/dL (74-106); PHOSPHORUS 3.7 mg/dL (2.5-4.9); SODIUM SERUM 138 mmol/L (136-145); UREA NITROGEN, BLOOD 39 mg/dL (7-18)
--- NOTE | 2021-12-23 07:38 | NUR ---
RT Patient received on 1L nasal cannula. Breathing treatment tolerated well. No SOB or respiratory distress noted at this time.
[2021-12-23] MEDS: ASCORBIC ACID 500 MG TABLET PO SCH (08:15)
[2021-12-23] MEDS: PANTOPRAZOLE 40 MG TABLET.DR PO SCH (08:15)
[2021-12-23] MEDS: DOCUSATE SODIUM 100 MG CAPSULE PO SCH (08:15)
[2021-12-23] MEDS: predniSONE 20 MG TABLET PO SCH (08:15)
[2021-12-23] MEDS: risperiDONE 1 MG TABLET PO SCH ×2 (08:15→18:10)
[2021-12-23] MEDS: ESCITALOPRAM OXALATE (10 MG) 10 MG TABLET PO SCH (08:15)
[2021-12-23] MEDS: VIT B CMPLX 3/FA/VIT C/BIOTIN 1 TAB TABLET PO SCH (08:15)
[2021-12-23] MEDS: PROSOURCE / PROSTAT (PYXIS) 30 ML UDC GT SCH (08:22)
[2021-12-23] MEDS: FAMOTIDINE (20 MG) 20 MG TABLET PO SCH (08:40)
[2021-12-23] MEDS: CARVEDILOL 12.5 MG TABLET PO SCH ×2 (08:45→21:00)
[2021-12-23] MEDS: CLOTRIMAZOLE 1% 15 GM TUBE TP SCH ×2 (09:41→18:57)
[2021-12-23 09:53] LABS: BAND % (MANUAL) 6 % (0.0-5.0); LYMPHOCYTES % (MANUAL) 5 % (16-48); MONOCYTES % (MANUAL) 3 % (0-11.0); NEUTROPHILS % (MANUAL) 86 (42-76)
[2021-12-23] MEDS: MEROPENEM 500 MG in IV NS 0.9% 50 ML IV SCH ×2 (15:37→23:08)
[2021-12-23] MEDS: ATORVASTATIN 10 MG TABLET PO SCH (18:10)
[2021-12-23] MEDS: DIVALPROEX SODIUM 500 MG TABLET.DR PO SCH (18:10)
--- NOTE | 2021-12-23 18:33 | NUR ---
RN CLOSING NOTES PT IN BED, AWAKE, CONFUSED, RESPONDS TO VERBAL AND TACTILE STIMULI. AOx2 ONLY. ON NC 1LPM AND TOLERATING WELL. S/P HD. NOT ON ANY S/SX OF RESPIRATORY DISTRESS NOTED, SHORTNESS OF BREATH ABSENT. TELE MONITOR SHOWS SINUS RHYTHM WITH PAC AT A RATE OF 98. IV ACCESS IN CLIFF PICC LINE, LFA #20G AND RCW PERMACATH. IV IS INTACT, PATENT, WITH NO SIGNS OF OCCLUSION. COMFORT MEASURES PROVIDED AND ALL NEEDS MET. PM CARE DONE. SAFETY PRECAUTIONS IN PLACE: BED AT LOWEST POSITION, LOCKED, BOTH SIDE RAILS UP, AND BRAKES ON. TABLE AND CALL LIGHT WITHIN REACH. WILL ENDORSE TO NIGHT BAKER NURSE.
--- NOTE | 2021-12-23 20:17 | NUR ---
RT PT RECVD AWAKE AND VERBAL ON 1 LPM NC. NEB TX GIVEN AND BRIJESH WELL. NO SOB OR RESPIRATORY DISTRESS NOTED AT THIS TIME. SPO2 97%
[2021-12-23] MEDS: SENNOSIDES 8.6 MG TABLET PO SCH (21:23)
[2021-12-24] MEDS: IPRATROPIUM NEB FS 0.5 MG/2.5 ML AMPUL.NEB NEB SCH ×4 (00:44→22:07)
[2021-12-24] MEDS: ALBUTEROL FS 2.5 MG/3 ML VIAL.NEB NEB SCH ×4 (00:44→22:07)
[2021-12-24 00:45] VITALS: BP 105/51
[2021-12-24 04:00] VITALS: BP 131/59
[2021-12-24] MEDS: INSULIN REGULAR, HUMAN 100 UNIT/ML 3 ML VIAL SQ PRN ×3 (06:02→17:30)
[2021-12-24] MEDS: BLOOD SUGAR DIAGNOSTIC 1 EACH STRIP IN SCH ×3 (06:02→17:29)
--- NOTE | 2021-12-24 06:03 | NUR ---
REFRIGERATOR ROOM CLERK NOTES PT REFUSED INSULIN COVERAGE X3 RISK AND BENEFITS EXPLAINEX3. WILL CONTINUE OT MONITOR.
--- NOTE | 2021-12-24 06:37 | NUR ---
RN CLOSING NOTES PT IN BED, AWAKE RESPONDS TO VERBAL AND TACTILE STIMULI. AOx2. ON NC 1LPM AND TOLERATING WELL. S/P HD. NOT ON ANY S/SX OF RESPIRATORY DISTRESS NOTED, SHORTNESS OF BREATH ABSENT. TELE MONITOR SHOWS SINUS RHYTHM WITH PAC AT A RATE OF 70S. IV ACCESS IN CLIFF PICC LINE, LFA #20G AND RCW PERMACATH. IV IS INTACT, PATENT, WITH NO SIGNS OF OCCLUSION. COMFORT MEASURES PROVIDED AND ALL NEEDS MET. SAFETY PRECAUTIONS IN PLACE: BED AT LOWEST POSITION, LOCKED, BOTH SIDE RAILS UP, AND BRAKES ON. TABLE AND CALL LIGHT WITHIN REACH. WILL ENDORSE TO DAY SHIFT NURSE.
[2021-12-24 06:50] LABS: EOSINOPHILS % (AUTO) 0.4 % (0.0-6.0); HEMATOCRIT 28 % (39-51); HEMOGLOBIN 9.1 g/dL (13.5-17.5); LYMPHOCYTES # (AUTO) 0.6 K/uL (0.8-4.8); LYMPHOCYTES % (AUTO) 8.3 % (20.0-44.0); MEAN CORPUSCULAR HGB CONC 32 g/dl (31.0-36.0); MEAN CORPUSCULAR VOLUME 90 fL (80-96); MONOCYTES # (AUTO) 0.2 K/uL (0.1-1.30); MONOCYTES % (AUTO) 2.9 % (2.0-12.0); NEUTROPHILS # (AUTO) 6.1 K/uL (1.8-8.9); NEUTROPHILS % (AUTO) 88.4 % (43.0-81.0); PLATELET COUNT (AUTO) 91 K/uL (150-450); RED BLOOD CELL COUNT(AUTO) 3.12 MIL/uL (4.5-6.0); WHITE BLOOD COUNT (AUTO) 6.9 K/uL (4.3-11.0)
[2021-12-24] MEDS: PANTOPRAZOLE 40 MG TABLET.DR PO SCH (07:37)
--- NOTE | 2021-12-24 07:37 | NUR ---
RN OPENING NOTES RECEIVED PATIENT AWAKE IN BED, A/O X2, RESPONDS TO VERBAL AND TACTILE STIMULI, ABLE TO VERBALIZE NEEDS. ON O2 @ 1LPM VIA NC, TOLERATING WELL. NO SOB NOR ANY S/SX OF RESPIRATORY DISTRESS NOTED. TELE MONITOR SHOWS SINUS RHYTHM WITH RATE OF 78 AT THIS TIME. IV ACCESS IN CLIFF PICC LINE AND LFA #20G AND RCW PERMACATH. ALL IV LINES ARE INTACT, PATENT, AND FLUSHING WELL, COVERED WITH DRY DRESSING WITH NO SIGNS OF INFECTION OR OCCLUSION. CONDOM CATHETER IN PLACE, DRAINING CLEAR YELLOW URINE. SAFETY PRECAUTIONS IN PLACE: BED IN LOWEST, LOCKED POSITION, SIDE RAILS UPx2, AND BRAKES ON. TRAY TABLE AND CALL LIGHT WITHIN REACH. WILL CONTINUE TO MONITOR.
[2021-12-24 07:45] LABS: BAND % (MANUAL) 1 % (0.0-5.0); EOSINOPHILS % (MANUAL) 1 % (0-4); LYMPHOCYTES % (MANUAL) 13 % (16-48); MONOCYTES % (MANUAL) 8 % (0-11.0); NEUTROPHILS % (MANUAL) 77 (42-76)
[2021-12-24 08:00] VITALS: BP 120/69
[2021-12-24 08:02] LABS: CARBON DIOXIDE 27 mmol/L (21-32); CHLORIDE 102 mmol/L (98-107); CREATININE 1.4 mg/dL (0.6-1.3); GLUCOSE 220 mg/dL (74-106); MAGNESIUM 1.9 mg/dL (1.8-2.4); PHOSPHORUS 2.7 mg/dL (2.5-4.9); POTASSIUM 3.3 mmol/L (3.5-5.1); SODIUM SERUM 137 mmol/L (136-145); UREA NITROGEN, BLOOD 30 mg/dL (7-18)
[2021-12-24] MEDS: VIT B CMPLX 3/FA/VIT C/BIOTIN 1 TAB TABLET PO SCH (09:19)
[2021-12-24] MEDS: FAMOTIDINE (20 MG) 20 MG TABLET PO SCH (09:20)
[2021-12-24] MEDS: DOCUSATE SODIUM 100 MG CAPSULE PO SCH (09:20)
[2021-12-24] MEDS: ESCITALOPRAM OXALATE (10 MG) 10 MG TABLET PO SCH (09:20)
[2021-12-24] MEDS: ASCORBIC ACID 500 MG TABLET PO SCH (09:20)
[2021-12-24] MEDS: CARVEDILOL 12.5 MG TABLET PO SCH ×2 (09:21→21:00)
[2021-12-24] MEDS: PROSOURCE / PROSTAT (PYXIS) 30 ML UDC GT SCH (09:21)
[2021-12-24] MEDS: risperiDONE 1 MG TABLET PO SCH ×2 (09:22→17:28)
[2021-12-24] MEDS: CLOTRIMAZOLE 1% 15 GM TUBE TP SCH ×3 (09:28→17:35)
[2021-12-24] MEDS ORDERED: POTASSIUM CHLORIDE 20 MEQ TAB.PRT.SR PO ONE (11:00)
[2021-12-24] MEDS: MEROPENEM 500 MG in IV NS 0.9% 50 ML IV SCH (11:22)
--- NOTE | 2021-12-24 13:20 | NUR ---
RN NOTES PT C/O GENERALIZED PAIN, PRN NORCO 5/325 TAB GIVEN AT 1319. WILL CONTINUE TO MONITOR AND REASSESS PT.
[2021-12-24 16:00] VITALS: BP 98/52
[2021-12-24] MEDS: DIVALPROEX SODIUM 500 MG TABLET.DR PO SCH (17:28)
[2021-12-24] MEDS: ATORVASTATIN 10 MG TABLET PO SCH (17:28)
--- NOTE | 2021-12-24 18:35 | NUR ---
SUPERVISOR DEHYDROGENATION CLOSING NOTES PATIENT AWAKE IN BED, A/O X2, RESPONDS TO VERBAL AND TACTILE STIMULI, ABLE TO VERBALIZE NEEDS. ON O2 @ 1LPM VIA NC, TOLERATING WELL. NO SOB NOR ANY S/SX OF RESPIRATORY DISTRESS NOTED. TELE MONITOR SHOWS SINUS RHYTHM WITH RATE OF 74 THIS TIME. IV ACCESS IN CLIFF PICC LINE AND LFA #20G AND RCW PERMACATH. ALL IV LINES ARE INTACT, PATENT, AND FLUSHING WELL, COVERED WITH DRY DRESSING WITH NO SIGNS OF INFECTION OR OCCLUSION. CONDOM CATHETER IN PLACE, DRAINED 900 ML OF CLEAR YELLOWISH URINE. ALL SAFETY PRECAUTIONS IN PLACE: BED IN LOWEST, LOCKED POSITION, SIDE RAILS UPx2, AND BRAKES ON. TRAY TABLE AND CALL LIGHT WITHIN REACH. ALL NEEDS MET. WILL ENDORSE TO THE NEXT SHIFT FOR DURGA.
--- NOTE | 2021-12-24 19:52 | NUR ---
FOOD PRODUCTION WORKER OPENING NOTES: RECEIVED PATIENT AWAKE IN BED , BED IN LOW POSITION CALL LIGHTS WITHIN REACH, ON ROOM AIR SATURATING WELL, NO SOB WAS OBSERVED, IV LINE AT CLIFF PICC LINE AND LFA#20 SALINE LOCK WITH RCW PERMACATH WITH CONDOM CATHETER, ON TELE MONITOR-70 KEPT CLEAN AND DRY ALL NEEDS METH WILL CONTINUE TO MONITOR.
[2021-12-24 20:12] VITALS: BP 97/51
--- NOTE | 2021-12-24 21:44 | NUR ---
RN NOTES: BLOOD PRESSURE BP-97/51 HR-71 HOLD BP MEDICINE DUE TO LOW SBP-97
[2021-12-24] MEDS: INSULIN GLARGINE, 100 UNIT/ML CARTRIDGE SQ SCH (22:00)
[2021-12-24] MEDS: SENNOSIDES 8.6 MG TABLET PO SCH (22:22)
--- NOTE | 2021-12-24 22:52 | NUR ---
RN NOTES: BS-74 INSULIN GLARGINE 10 UNITS NOT GIVEN
[2021-12-25] VITALS: BP 99/55
[2021-12-25] MEDS: MEROPENEM 500 MG in IV NS 0.9% 50 ML IV SCH (00:22)
--- NOTE | 2021-12-25 00:51 | NUR ---
RN NOTES: BLOOD SUGAR-118 NO INSULIN GIVEN PER SLIDING SCALE
[2021-12-25] MEDS: ALBUTEROL FS 2.5 MG/3 ML VIAL.NEB NEB SCH ×4 (02:24→20:34)
[2021-12-25] MEDS: IPRATROPIUM NEB FS 0.5 MG/2.5 ML AMPUL.NEB NEB SCH ×4 (02:24→20:34)
[2021-12-25 04:00] VITALS: BP 98/70
[2021-12-25 04:43] VITALS: BP 98/70
[2021-12-25] MEDS: BLOOD SUGAR DIAGNOSTIC 1 EACH STRIP IN SCH ×5 (06:00→23:29)
--- NOTE | 2021-12-25 06:19 | NUR ---
RN NOTES: BLOOD SUGAR-108 NO INSULIN GIVEN PER SLIDING SCALE
--- NOTE | 2021-12-25 06:40 | NUR ---
FLEET COORDINATOR OPENING NOTES: PATIENT SLEEP IN BED COMFORTABLY AROUSABLE TO VERBAL STIMULI, BED IN LOW POSITION CALL LIGHTS WITHIN REACH, ON ROOM AIR SATURATING WELL PATIENT, ON TELE [id number] WITH CONDOM CATHETER- 1500CC URINE OUTPUT, PATIENT KEPT CLEAN AND DRY ALL NEEDS MET ENDORSE TO INCOMING SHIFT.
[2021-12-25] MEDS: PANTOPRAZOLE 40 MG TABLET.DR PO SCH (07:32)
[2021-12-25 07:46] LABS: BASOPHILS % (AUTO) 0.2 % (0.0-2.0); EOSINOPHILS % (AUTO) 0.5 % (0.0-6.0); HEMATOCRIT 30 % (39-51); LYMPHOCYTES # (AUTO) 0.6 K/uL (0.8-4.8); LYMPHOCYTES % (AUTO) 8.5 % (20.0-44.0); MEAN CORPUSCULAR HGB CONC 33 g/dl (31.0-36.0); MEAN CORPUSCULAR VOLUME 89 fL (80-96); MONOCYTES # (AUTO) 0.1 K/uL (0.1-1.30); MONOCYTES % (AUTO) 1.4 % (2.0-12.0); NEUTROPHILS # (AUTO) 5.8 K/uL (1.8-8.9); NEUTROPHILS % (AUTO) 89.4 % (43.0-81.0); PLATELET COUNT (AUTO) 95 K/uL (150-450); RED BLOOD CELL COUNT(AUTO) 3.39 MIL/uL (4.5-6.0); WHITE BLOOD COUNT (AUTO) 6.5 K/uL (4.3-11.0)
--- NOTE | 2021-12-25 07:51 | NUR ---
TOPOGRAPHICAL FIELD ASSISTANT OPENING NOTES RECEIVED PATIENT AWAKE IN BED, A/O X2, RESPONDS TO VERBAL AND TACTILE STIMULI, ABLE TO VERBALIZE NEEDS. ON O2 @ 6 LPM VIA NC, TOLERATING WELL WITH 96% O2 SAT. NO SOB NOR ANY S/SX OF RESPIRATORY DISTRESS NOTED. TELE MONITOR SHOWS SINUS RHYTHM WITH RATE OF 87 AT THIS TIME. IV ACCESS IN CLIFF PICC LINE AND LFA #20G AND RCW PERMACATH. ALL IV LINES ARE INTACT, PATENT, AND FLUSHING WELL, COVERED WITH DRY DRESSING WITH NO SIGNS OF INFECTION OR OCCLUSION. CONDOM CATHETER IN PLACE, DRAINING CLEAR YELLOW URINE. SAFETY PRECAUTIONS IN PLACE: BED IN LOWEST, LOCKED POSITION, SIDE RAILS UPx2, AND BRAKES ON. TRAY TABLE AND CALL LIGHT WITHIN REACH. SCHEDULED TO HAVE HEMODIALYSIS TODAY. WILL CONTINUE TO MONITOR. Addendum: 12/25/21 at 1812 by LORENZO ANDERSON RN CORRECTION: PT ON 1LPM NOT 6LPM VIA N/C.
[2021-12-25 08:01] LABS: CALCIUM, SERUM 8.5 mg/dL (8.5-10.1); CARBON DIOXIDE 28 mmol/L (21-32); CHLORIDE 104 mmol/L (98-107); CREATININE 1.6 mg/dL (0.6-1.3); GLUCOSE 109 mg/dL (74-106); MAGNESIUM 1.9 mg/dL (1.8-2.4); PHOSPHORUS 2.9 mg/dL (2.5-4.9); POTASSIUM 3.8 mmol/L (3.5-5.1); SODIUM SERUM 137 mmol/L (136-145); UREA NITROGEN, BLOOD 36 mg/dL (7-18)
[2021-12-25] MEDS: PROSOURCE / PROSTAT (PYXIS) 30 ML UDC GT SCH (08:54)
[2021-12-25] MEDS: risperiDONE 1 MG TABLET PO SCH ×2 (08:55→17:44)
[2021-12-25] MEDS: DOCUSATE SODIUM 100 MG CAPSULE PO SCH (08:55)
[2021-12-25] MEDS: FAMOTIDINE (20 MG) 20 MG TABLET PO SCH (08:55)
[2021-12-25] MEDS: ESCITALOPRAM OXALATE (10 MG) 10 MG TABLET PO SCH (08:55)
[2021-12-25] MEDS: VIT B CMPLX 3/FA/VIT C/BIOTIN 1 TAB TABLET PO SCH (08:55)
[2021-12-25] MEDS: ASCORBIC ACID 500 MG TABLET PO SCH (08:55)
[2021-12-25] MEDS: CARVEDILOL 12.5 MG TABLET PO SCH ×2 (08:56→21:00)
[2021-12-25] MEDS ORDERED: MEROPENEM 1 G in IV NS 0.9% 100 ML IV SCH ×2 (09:00→21:00)
[2021-12-25 09:55] VITALS: BP 99/53
[2021-12-25 10:40] LABS: BAND % (MANUAL) 5 % (0.0-5.0); LYMPHOCYTES % (MANUAL) 9 % (16-48); MONOCYTES % (MANUAL) 2 % (0-11.0); NEUTROPHILS % (MANUAL) 83 (42-76); PROMYELOCYTES % 1 % (0-0)
[2021-12-25] MEDS: INSULIN REGULAR, HUMAN 100 UNIT/ML 3 ML VIAL SQ PRN ×3 (12:00→23:31)
[2021-12-25] MEDS: MEROPENEM 1 G in IV NS 0.9% 100 ML IV SCH ×2 (13:56→21:02)
[2021-12-25 16:03] VITALS: BP 112/61
[2021-12-25] MEDS: ATORVASTATIN 10 MG TABLET PO SCH (17:44)
[2021-12-25] MEDS: DIVALPROEX SODIUM 500 MG TABLET.DR PO SCH (17:44)
[2021-12-25] MEDS: CLOTRIMAZOLE 1% 15 GM TUBE TP SCH (17:58)
--- NOTE | 2021-12-25 18:21 | NUR ---
HOSIERY REPAIRER CLOSING NOTES PATIENT AWAKE IN BED, A/O X2, RESPONDS TO VERBAL AND TACTILE STIMULI, ABLE TO VERBALIZE NEEDS, NOTED WITH EPISODES OF CONFUSION. ON O2 @ 1LPM VIA NC, TOLERATING WELL. NO SOB NOR ANY S/SX OF RESPIRATORY DISTRESS NOTED. TELE MONITOR SHOWS SINUS RHYTHM WITH RATE OF 92 THIS TIME. CLIFF PICC LINE AND LFA #20G SALINE LOCK AND RCW PERMACATH. ALL IV LINES ARE INTACT, PATENT, AND FLUSHING WELL, WITH DRY DRESSING IN PLACE. CONDOM CATHETER IN PLACE. TURNED AND REPOSITIONED THE PATIENT Q2H AND PLACED 4X4 FOAM DRESSING ON THE SACRAL AREA DURING PM CARE. ALL SAFETY PRECAUTIONS IN PLACE: BED IN LOWEST, LOCKED POSITION, SIDE RAILS UPx2, AND BRAKES ON. TRAY TABLE AND CALL LIGHT WITHIN REACH. ALL NEEDS MET. WILL ENDORSE TO THE NEXT SHIFT FOR DURGA
--- NOTE | 2021-12-25 19:30 | NUR ---
MS RN NOTES RECEIVED ON BED,A/O X2-3,ON HIGH FOWLERS POSITION.,BREATHING NON LABORED,O2 1L USE NEEDED ONLY,WITH CONDOM CATH IN PLACE DRAING YELLOWISH OUTPUT.WITH CLIFF PICC LINE FOR MEDS,RIGHT CHEST WALL PERMA CATH FOR HD ACCESS.WILL HAVE ONE TOMORROW .CONSENT ON CHART.MEPILEX ON SACRAL AREA IN PLACE,WILL REPOSITION PER PROTOCOL,CALL LIGHT IN REACH,NEEDS ANTICIPATED.
[2021-12-25 20:00] VITALS: BP_SYST 102; BP_SYST 138; BP_DIAS 53; BP_DIAS 76
[2021-12-25] MEDS: SENNOSIDES 8.6 MG TABLET PO SCH (21:35)
--- NOTE | 2021-12-25 22:00 | NUR ---
INDUSTRIAL METHODS CONSULTANT NOTES ACCU-CHECK BLOOD SUGAR CHECK 146,COVERED WITH HUMULIN R 2 UNITS PER SLIDING SCALE.NOURISHMENT PROVIDED AT BEDSIDE.
[2021-12-25] MEDS: INSULIN GLARGINE, 100 UNIT/ML CARTRIDGE SQ SCH (23:29)
[2021-12-26] VITALS: BP 97/55
[2021-12-26] MEDS: ALBUTEROL FS 2.5 MG/3 ML VIAL.NEB NEB SCH ×4 (01:42→19:41)
[2021-12-26] MEDS: IPRATROPIUM NEB FS 0.5 MG/2.5 ML AMPUL.NEB NEB SCH ×4 (01:42→19:41)
--- NOTE | 2021-12-26 02:00 | NUR ---
LEAN MANUFACTURING COORDINATOR NOTES SOUND ASLEEP,KEPT WARM AND COMFORTABLE.
[2021-12-26 04:00] VITALS: BP 103/58
--- NOTE | 2021-12-26 05:30 | NUR ---
SUPPLIER QUALITY SPECIALIST NOTES ACCU-CHECK BLOOD SUGAR CHECK 119,NO INSULIN COVERAGE.
[2021-12-26] MEDS: BLOOD SUGAR DIAGNOSTIC 1 EACH STRIP IN SCH ×4 (05:40→23:32)
--- NOTE | 2021-12-26 06:41 | NUR ---
BAGGAGE AGENT SUPERVISOR NOTES SLEEP WELL AT NIGHT,REPOSITION PER PROTOCOL,DENIES APIN,IN NO ACUTE DISTRESS.
[2021-12-26 06:53] LABS: BASOPHILS % (AUTO) 0.3 % (0.0-2.0); EOSINOPHILS % (AUTO) 0.6 % (0.0-6.0); HEMATOCRIT 29 % (39-51); HEMOGLOBIN 9.6 g/dL (13.5-17.5); LYMPHOCYTES # (AUTO) 0.5 K/uL (0.8-4.8); LYMPHOCYTES % (AUTO) 10.3 % (20.0-44.0); MEAN CORPUSCULAR HGB CONC 33 g/dl (31.0-36.0); MEAN CORPUSCULAR VOLUME 90 fL (80-96); MONOCYTES # (AUTO) 0.2 K/uL (0.1-1.30); MONOCYTES % (AUTO) 3.1 % (2.0-12.0); NEUTROPHILS # (AUTO) 4.5 K/uL (1.8-8.9); NEUTROPHILS % (AUTO) 85.7 % (43.0-81.0); PLATELET COUNT (AUTO) 93 K/uL (150-450); RED BLOOD CELL COUNT(AUTO) 3.21 MIL/uL (4.5-6.0); WHITE BLOOD COUNT (AUTO) 5.3 K/uL (4.3-11.0)
[2021-12-26 07:04] LABS: CALCIUM, SERUM 8.4 mg/dL (8.5-10.1); CARBON DIOXIDE 30 mmol/L (21-32); CHLORIDE 105 mmol/L (98-107); CREATININE 1.8 mg/dL (0.6-1.3); GLUCOSE 118 mg/dL (74-106); PHOSPHORUS 3.5 mg/dL (2.5-4.9); POTASSIUM 3.7 mmol/L (3.5-5.1); SODIUM SERUM 139 mmol/L (136-145); UREA NITROGEN, BLOOD 40 mg/dL (7-18)
--- NOTE | 2021-12-26 07:30 | NUR ---
RN OPENING NOTE PATIENT IS IN BED, ASLEEP, BUT EASILY AROUSABLE, ALERT ORIENTED X 2. SINUS RHYTHM ON SAP FICO ARCHITECT. WITH CONDOM CATHETER ATTACHED TO URINE BAG DRAINING TO CLEAR YELLOW URINE. WITH LEFT UPPER ARM PICC LINE INTACTA ND COVERED WITH DRY DRESSING. WITH RIGHT CHEST WALL PERMACATH INTACT AND COVERED WITH DRY DRESSING. BREATHING UNLABORED AND NOT IN ANY FORM OF DISTRESS. BED IS LOCKED IN LOWEST POSITION, 3 SIDE RAILS UP, CALL IGHT WITHIN REACH. WILL CONTINUE TO MONITOR THROUGHOUT SHIFT.
[2021-12-26 08:00] VITALS: BP 98/59
--- NOTE | 2021-12-26 08:09 | NUR ---
WOUND CARE CONSULT: PT REFUSED SKIN ASSESSMENT, STATING "LEAVE ME ALONE". DISCUSSED SKIN PROTECTION AND WOUND CARE WITH NURSING STAFF. PT FOLLOWED BY SURGICAL TEAM FOR SACRAL DEEP TISSUE INJURY. CONCUR WITH TREATMENT PLAN. MD IN AGREEMENT WITH PLAN OF CARE.
[2021-12-26] MEDS: CARVEDILOL 12.5 MG TABLET PO SCH ×2 (09:00→21:41)
[2021-12-26] MEDS: PROSOURCE / PROSTAT (PYXIS) 30 ML UDC GT SCH (09:19)
[2021-12-26] MEDS: ASCORBIC ACID 500 MG TABLET PO SCH (09:20)
[2021-12-26] MEDS: MEROPENEM 1 G in IV NS 0.9% 100 ML IV SCH ×2 (09:20→21:41)
[2021-12-26] MEDS: risperiDONE 1 MG TABLET PO SCH ×2 (09:20→17:46)
[2021-12-26] MEDS: FAMOTIDINE (20 MG) 20 MG TABLET PO SCH (09:21)
[2021-12-26] MEDS: DOCUSATE SODIUM 100 MG CAPSULE PO SCH (09:21)
[2021-12-26] MEDS: VIT B CMPLX 3/FA/VIT C/BIOTIN 1 TAB TABLET PO SCH (09:21)
[2021-12-26] MEDS: ESCITALOPRAM OXALATE (10 MG) 10 MG TABLET PO SCH (09:22)
[2021-12-26] MEDS: CLOTRIMAZOLE 1% 15 GM TUBE TP SCH ×2 (09:22→17:48)
[2021-12-26] MEDS: PANTOPRAZOLE 40 MG TABLET.DR PO SCH (09:29)
[2021-12-26 09:55] LABS: BAND % (MANUAL) 2 % (0.0-5.0); BASOPHILS % (MANUAL) 0 % (0.0-2.0); EOSINOPHILS % (MANUAL) 0 % (0-4); LYMPHOCYTES % (MANUAL) 8 % (16-48); MONOCYTES % (MANUAL) 3 % (0-11.0); NEUTROPHILS % (MANUAL) 87 (42-76)
[2021-12-26 12:00] VITALS: BP 97/58
[2021-12-26] MEDS: INSULIN REGULAR, HUMAN 100 UNIT/ML 3 ML VIAL SQ PRN ×3 (12:41→23:31)
[2021-12-26] MEDS: ALBUMIN 25% 25 GM in PREMIX 1 EA IV PRN (15:38)
[2021-12-26 16:39] VITALS: BP 100/63
[2021-12-26] MEDS: DIVALPROEX SODIUM 500 MG TABLET.DR PO SCH (17:46)
[2021-12-26] MEDS: ATORVASTATIN 10 MG TABLET PO SCH (17:46)
--- NOTE | 2021-12-26 19:00 | NUR ---
RN CLOSING NOTE PATIENT IS IN RESTING COMFORTABLY IN BED AND REMAINED STABLE THROUGHOUT SHIFT. WITH 02 VIA NASAL CANNULA AT 2L/MIN. LEFT UPPER ARM PICC LINE INTACT AND COVERED WITH DRY DRESSING,. RIGHT CHEST WALL PERMA CATHETER INTACT AND COVERED WITH DRY DRESSING. CONDOM CATHETER INTACT. BREATHING UNLABORED AND NOT IN ANY FORM OF DISTRESS. BED IS LOCKED IN LOWEST POSITION, 3 SIDE RAILS UP, CALL LIGHT WITHIN REACH. WILL ENDORSE TO LEAD TECHNICAL ARCHITECT NURSE.
--- NOTE | 2021-12-26 19:25 | NUR ---
TUGGER OPERATOR OPENING NOTES: RECEIVED PATIENT IN BED, AWAKE, A/O X2. ALWAYS SCREAMS. NO S/S OF DISTRESS NOTED. NO COMPLAIN OF PAIN. CALL LIGHT WITHIN REACH. BED ALARM ON. BED IN LOWEST AND LOCKED POSITION. HOB ELEVATED AT ALL TIMES. ON TELE MONITOR WITH SR 87. NPO EXCEPT MEDS. WITH RIGHT CW PERMA CATHETER INTACT. WITH CLIFF PICC LINE INTACT.
[2021-12-26 20:00] VITALS: BP 108/55
[2021-12-26] MEDS: SENNOSIDES 8.6 MG TABLET PO SCH (21:40)
[2021-12-26] MEDS: INSULIN GLARGINE, 100 UNIT/ML CARTRIDGE SQ SCH (23:36)
[2021-12-27] VITALS (8 sets, daily range): BP systolic 94–120; BP diastolic 49–61
[2021-12-27] MEDS: ALBUTEROL FS 2.5 MG/3 ML VIAL.NEB NEB SCH ×4 (02:19→20:19)
[2021-12-27] MEDS: IPRATROPIUM NEB FS 0.5 MG/2.5 ML AMPUL.NEB NEB SCH ×4 (02:19→20:19)
[2021-12-27] MEDS: INSULIN REGULAR, HUMAN 100 UNIT/ML 3 ML VIAL SQ PRN ×2 (05:54→23:06)
[2021-12-27] MEDS: BLOOD SUGAR DIAGNOSTIC 1 EACH STRIP IN SCH ×4 (05:55→23:08)
--- NOTE | 2021-12-27 05:55 | NUR ---
blood sugar [id number], no insulin given patient is NPO.
--- NOTE | 2021-12-27 07:30 | NUR ---
RN OPENING NOTES PATIENT IN BED AWAKE, ALERT, VERBALLY RESPONSIVE, NO SIGNS OF ACUTE DISTRESS NOTED. PATIENT ASKING FOR FOOD, REORIENTED PATIENT, ON NPO FOR LEFT HEART CATHETERIZATION THIS MORNING. ON ROOM AIR, TOLERATING WELL, NO SOB NOTED, BREATHING EVEN AND UNLABORED. WITH PICC LINE ON LEFT UPPER ARM INTACT AND PATENT AND WITH RIGHT CHEST WALL PERMACATH WITH DRESSING C/D/I. SAFETY MEASURE IN PLACE. BED IN LOWEST AND LOCKED POSITION, SIDE RAILS UP, CALL LIGHT PLACED WITHIN EASY REACH. WILL CONTINUE TO MONITOR PATIENT.
[2021-12-27] MEDS: PANTOPRAZOLE 40 MG TABLET.DR PO SCH (07:56)
[2021-12-27] MEDS: PROSOURCE / PROSTAT (PYXIS) 30 ML UDC GT SCH (09:00)
[2021-12-27] MEDS: ASCORBIC ACID 500 MG TABLET PO SCH (09:00)
[2021-12-27] MEDS: VIT B CMPLX 3/FA/VIT C/BIOTIN 1 TAB TABLET PO SCH (09:00)
[2021-12-27] MEDS: risperiDONE 1 MG TABLET PO SCH ×2 (09:00→17:05)
[2021-12-27] MEDS: DOCUSATE SODIUM 100 MG CAPSULE PO SCH (09:00)
[2021-12-27] MEDS: ESCITALOPRAM OXALATE (10 MG) 10 MG TABLET PO SCH (09:00)
[2021-12-27] MEDS: CLOTRIMAZOLE 1% 15 GM TUBE TP SCH ×2 (09:00→17:11)
[2021-12-27] MEDS: FAMOTIDINE (20 MG) 20 MG TABLET PO SCH (09:00)
[2021-12-27] MEDS: CARVEDILOL 12.5 MG TABLET PO SCH ×2 (09:00→21:00)
--- NOTE | 2021-12-27 09:00 | NUR ---
RN NOTES PATIENT PPICKED UP FOR LEFT HEART CATH PROCEDURE..
[2021-12-27] MEDS ORDERED: IV SET PRIMARY PUMP SET 1 EA INFUS.SET MC ONE (09:05)
[2021-12-27] MEDS ORDERED: IV NS 0.9% 1,000 ML ONE (09:05)
[2021-12-27] MEDS ORDERED: FENTANYL PF 100MCG/2ML AMPUL ONE (09:06)
[2021-12-27] MEDS ORDERED: MIDAZOLAM HCL 2 MG/2ML VIAL ONE (09:06)
[2021-12-27] MEDS ORDERED: LIDOCAINE HCL/MPF 1% 30 ML VIAL IJ ONE (09:06)
[2021-12-27] MEDS ORDERED: IODIXANOL 150 ML IV ONE (09:11)
[2021-12-27] MEDS: MEROPENEM 1 G in IV NS 0.9% 100 ML IV SCH ×2 (09:24→21:19)
--- NOTE | 2021-12-27 11:45 | NUR ---
RN NOTES PATIENT BACK FROM PROCEDURE LEFT HEART CATHETERIZATION. PATIENT AWAKE, ALERT AND VERBALLY RESPONSIVE. NOTED WITH TR BAND ON RIGHT ARM. NO BLEEDING NOTED. POSITIVE PEDAL PULSES. KEPT PATIENT FLAT IN BED. VITAL SIGNS TAKEN. WILL CONTINUE TO MONITOR PATIENT.
[2021-12-27] MEDS: ATORVASTATIN 10 MG TABLET PO SCH (17:05)
[2021-12-27] MEDS: DIVALPROEX SODIUM 500 MG TABLET.DR PO SCH (17:05)
--- NOTE | 2021-12-27 18:55 | NUR ---
RN CLOSING NOTES PATIENT IN BED AWAKE. NO SIGNS OF ACUTE DISTRESS NOTED. PATIENT REMAINS STABLE ON ROOM AIR, TOLERATING WELL, NO SOB NOTED, BREATHING EVEN AND UNLABORED. WITH PICC LINE ON LEFT UPPER ARM INTACT AND PATENT AND WITH RIGHT CHEST WALL PERMACATH WITH DRESSING C/D/I. S/P LEFT HEART CATHETERIZATION. NO BLEEDING NOTED ON RIGHT RADIAL ARTERY SITE. ON TELE MONITOR SHOWING SINUS RHYTHM, HR @ 82. ASPIRATION AND SAFETY MEASURE IN PLACE. BED IN LOWEST AND LOCKED POSITION, SIDE RAILS UP, CALL LIGHT PLACED WITHIN EASY REACH. WILL ENDORSE TO NEXT SHIFT FOR CONTINUITY OF CARE.
--- NOTE | 2021-12-27 19:40 | NUR ---
TELE/RN OPENING NOTE RECEIVED PATIENT SLEEPING IN BED. ALERT AND ORIENTED X 3. ABLE TO MAKE NEEDS KNOWN. NO S/SX OF PAIN NOTED AT THIS TIME. CONTINUES ON ROOM AIR WITH NO S/SX OF RESPIRATORY DISTRESS NOTED. IV ACCESS TO LEFT UPPER ARM PICC LINE INTACT, PATENT AND SALINE LOCKED. CONTINUES ON IV ABX. CONTINUES WITH HD PERMA CATH TO RIGHT CHEST WALL. CONTINUES ON RENAL DIET WITH PUREED TEXTURE AND NECTAR THICK LIQUIDS. CONTINUES WITH CLAY CATHETER DRAINING CLEAR, YELLOW URINE TO GRAVITY. CALL LIGHT WITHIN REACH. ASPIRATION, FALL AND SAFETY PRECAUTIONS MAINTAINED. ALL NEEDS ATTENDED TO AT THIS TIME.
[2021-12-27] MEDS: SENNOSIDES 8.6 MG TABLET PO SCH (21:20)
[2021-12-27] MEDS: INSULIN GLARGINE, 100 UNIT/ML CARTRIDGE SQ SCH (23:05)
[2021-12-28] VITALS: BP 98/58
[2021-12-28] MEDS: ALBUTEROL FS 2.5 MG/3 ML VIAL.NEB NEB SCH ×3 (01:05→13:30)
[2021-12-28] MEDS: IPRATROPIUM NEB FS 0.5 MG/2.5 ML AMPUL.NEB NEB SCH ×3 (01:05→13:30)
[2021-12-28 04:00] VITALS: BP 102/50
[2021-12-28] MEDS: BLOOD SUGAR DIAGNOSTIC 1 EACH STRIP IN SCH ×2 (06:13→13:34)
[2021-12-28 06:35] LABS: BASOPHILS % (AUTO) 0.3 % (0.0-2.0); EOSINOPHILS % (AUTO) 1.1 % (0.0-6.0); HEMATOCRIT 28 % (39-51); HEMOGLOBIN 9.5 g/dL (13.5-17.5); LYMPHOCYTES # (AUTO) 0.5 K/uL (0.8-4.8); LYMPHOCYTES % (AUTO) 9.8 % (20.0-44.0); MEAN CORPUSCULAR HGB CONC 34 g/dl (31.0-36.0); MEAN CORPUSCULAR VOLUME 89 fL (80-96); MONOCYTES # (AUTO) 0.3 K/uL (0.1-1.30); MONOCYTES % (AUTO) 5.5 % (2.0-12.0); NEUTROPHILS # (AUTO) 4.1 K/uL (1.8-8.9); NEUTROPHILS % (AUTO) 83.3 % (43.0-81.0); PLATELET COUNT (AUTO) 111 K/uL (150-450); RED BLOOD CELL COUNT(AUTO) 3.18 MIL/uL (4.5-6.0)
--- NOTE | 2021-12-28 06:40 | NUR ---
TELE/RN CLOSING NOTE PATIENT CURRENTLY RESTING IN BED. ALERT AND ORIENTED X 2. ABLE TO MAKE NEEDS KNOWN. NO S/SX OF PAIN NOTED AT THIS TIME. CONTINUES ON ROOM AIR WITH NO S/SX OF RESPIRATORY DISTRESS NOTED. IV ACCESS TO LEFT UPPER ARM PICC LINE INTACT, PATENT AND SALINE LOCKED. CONTINUES ON IV ABX. CONTINUES WITH HD PERMA CATH TO RIGHT CHEST WALL. CONTINUES ON RENAL DIET WITH PUREED TEXTURE AND NECTAR THICK LIQUIDS. CONTINUES WITH CONDOM CATHETER DRAINING CLEAR, YELLOW URINE TO GRAVITY. CALL LIGHT WITHIN REACH. ASPIRATION, FALL AND SAFETY PRECAUTIONS MAINTAINED. WILL ENDORSE PLAN OF CARE TO ONCOMING SHIFT RN.
[2021-12-28 07:04] LABS: CALCIUM, SERUM 8.4 mg/dL (8.5-10.1); CARBON DIOXIDE 29 mmol/L (21-32); CHLORIDE 104 mmol/L (98-107); CREATININE 1.7 mg/dL (0.6-1.3); GLUCOSE 108 mg/dL (74-106); PHOSPHORUS 2.7 mg/dL (2.5-4.9); POTASSIUM 3.9 mmol/L (3.5-5.1); SODIUM SERUM 138 mmol/L (136-145); UREA NITROGEN, BLOOD 27 mg/dL (7-18)
--- NOTE | 2021-12-28 07:20 | NUR ---
TOWER CLIMBER OPENING NOTE: RECEIVED PATIENT AWAKE IN BED A/OX2-3, ABLE TO MAKE NEEDS KNOWN. DENIES PAIN OR DISCOMFORT AT THIS TIME. ON RA, NO S/S OF RESPIRATORY DISTRESS. ON TELE MONITORING, NSR, WITH HR 78 BPM. IV ACCESS ON CLIFF PICC LINE SALINE LOCKED. IV SITE PATENT AND FLUSHING WELL WITH NO S/S OF PHLEBITIS AND INFILTRATION. PT. HAS RIGHT CHEST WALL PERMA CATH. DRESSING C/D/I. PT. ON BED REST. SAFETY, ASPIRATION, PRESSURE ULCER, AND FALL PRECAUTIONS IN PLACE: BED LOCKED AND IN LOWEST POSITION, CALL LIGHT WITHIN REACH, BED ALARM ON, ORAL FLUIDS THICKENED, HOB ELEVATED, WILL REPOSITION AT LEAST Q2H.. WILL CONTINUE TO MONITOR PT. FOR ANY CHANGES.
[2021-12-28 08:34] LABS: BAND % (MANUAL) 3 % (0.0-5.0); BASOPHILS % (MANUAL) 0 % (0.0-2.0); EOSINOPHILS % (MANUAL) 0 % (0-4); LYMPHOCYTES % (MANUAL) 11 % (16-48); MONOCYTES % (MANUAL) 8 % (0-11.0); NEUTROPHILS % (MANUAL) 78 (42-76)
[2021-12-28 08:46] VITALS: BP 119/53
[2021-12-28] MEDS: CARVEDILOL 12.5 MG TABLET PO SCH (09:00)
--- NOTE | 2021-12-28 09:05 | NUR ---
SCHEDULE ANNOUNCER NOTE: PT.'S 0900 DOSE OF CARVEDILOL 12.5 MG PO HELD DUE TO SCHEDULED HEMODIALYSIS THIS MORNING.
[2021-12-28] MEDS: ALBUMIN 25% 25 GM in PREMIX 1 EA IV PRN (09:45)
[2021-12-28] MEDS: PROSOURCE / PROSTAT (PYXIS) 30 ML UDC GT SCH (09:57)
[2021-12-28] MEDS: VIT B CMPLX 3/FA/VIT C/BIOTIN 1 TAB TABLET PO SCH (09:57)
[2021-12-28] MEDS: ASCORBIC ACID 500 MG TABLET PO SCH (09:57)
[2021-12-28] MEDS: CLOTRIMAZOLE 1% 15 GM TUBE TP SCH (09:57)
[2021-12-28] MEDS: risperiDONE 1 MG TABLET PO SCH (09:57)
[2021-12-28] MEDS: ESCITALOPRAM OXALATE (10 MG) 10 MG TABLET PO SCH (09:57)
[2021-12-28] MEDS: FAMOTIDINE (20 MG) 20 MG TABLET PO SCH (09:58)
[2021-12-28] MEDS: DOCUSATE SODIUM 100 MG CAPSULE PO SCH (09:58)
[2021-12-28] MEDS: PANTOPRAZOLE 40 MG TABLET.DR PO SCH (10:18)
[2021-12-28] MEDS ORDERED: CARV12.52 PO (11:24)
[2021-12-28] MEDS ORDERED: Insulin Glargine,Hum SQ (11:24)
[2021-12-28] MEDS ORDERED: INSU100V28 SQ (11:24)
[2021-12-28 11:35] VITALS: BP 96/50
[2021-12-28] MEDS: MEROPENEM 1 G in IV NS 0.9% 100 ML IV SCH (13:48)
--- NOTE | 2021-12-28 14:50 | NUR ---
SURGICAL GARMENT ASSEMBLER NOTE: PT. FINISHED HD WITH NO OUTPUT. VS: BP - 101/54; T - 98.1; AR - 82 BPM; RESP - 20; SPO2 - 96% ON RA. AOX2-3. NO COMPLAINTS OF PAIN/DIZZINESS AT THIS TIME. WILL CONTINUE TO MONITOR FOR ANY CHANGES.
[2021-12-28 16:17] VITALS: BP 91/41
--- NOTE | 2021-12-28 17:10 | NUR ---
CONTACT CLERKPLASTIC SHEETING CUTTER NOTE: PATIENT DC'ED BACK TO [facility] VIA AMBULANCE. GAVE REPORT TO [facility] OVER THE PHONE. VS ARE STABLE EXCEPT FOR BP THAT IS 101/54. PT. JUST HAD HD TODAY. ALERT/ORIENTED X 2-3. NO COMPLAINTS OF PAIN/DISCOMFORT AT THIS TIME. PT STABLE ON ROOM AIR. NO S/S OF DISTRESS OR SOB NOTED. IV ACCESS REMOVED, PRESSURE DRESSING APPLIED. NO S/S OF BLEEDING. CLIFF PICC LINE KEPT IN PLACE TO CONTINUE IV ABX IN SNF. RIGHT CW PERMA CATH STILL IN PLACE, DRESSING C/D/I. PT. UNABLE TO SIGN WRITTEN DC INSTRUCTIONS AND PT. BELONGING LIST DUE TO CONFUSION. EDUCATION MATERIALS AND NEW/CONTINUED/DISCONTINUED MED LIST PROVIDED AND EXPLAINED TO [facility] OVER THE PHONE. REPORT GIVEN TO 2 PLANT SAFETY ENGINEER WELL. THEY VERBALIZED UNDERSTANDING. PT. LEFT THE UNIT ON A GURNEY WITH 2 EMT PERSONNEL AT [id number].
== END 2021-12-28 17:30 | DRG 871 ==
LOC: ER 05:04 → ICU 10:19 → TELE 12-21 10:37
PROVIDERS: ATTEND Internal Medicine
PROC: 02HV33Z Insertion of Infusion Device into Superior Vena Cava, Percutaneous Approach (ICD-10-PCS; 2021-12-17)
PROC: B548ZZA Ultrasonography of Superior Vena Cava, Guidance (ICD-10-PCS; 2021-12-17)
PROC: 5A1D70Z Performance of Urinary Filtration, Intermittent, Less than 6 Hours Per Day (ICD-10-PCS; 2021-12-19)
PROC: 4A023N7 Measurement of Cardiac Sampling and Pressure, Left Heart, Percutaneous Approach (ICD-10-PCS; principal; 2021-12-27)
PROC: B211YZZ Fluoroscopy of Multiple Coronary Arteries using Other Contrast (ICD-10-PCS; 2021-12-27)
DX: A41.51 Sepsis due to Escherichia coli [E. coli] (principal); I21.A1 Myocardial infarction type 2; J69.0 Pneumonitis due to inhalation of food and vomit; J96.01 Acute respiratory failure with hypoxia; N18.6 End stage renal disease; R65.21 Severe sepsis with septic shock; I12.0 Hypertensive chronic kidney disease with stage 5 chronic kidney disease or end stage renal disease; E87.2 Acidosis; D68.59 Other primary thrombophilia; G93.40 Encephalopathy, unspecified; Z16.12 Extended spectrum beta lactamase (ESBL) resistance; E11.22 Type 2 diabetes mellitus with diabetic chronic kidney disease; Z99.2 Dependence on renal dialysis; Z20.822 Contact with and (suspected) exposure to COVID-19; J44.9 Chronic obstructive pulmonary disease, unspecified; I25.10 Atherosclerotic heart disease of native coronary artery without angina pectoris; Z79.01 Long term (current) use of anticoagulants; Z79.51 Long term (current) use of inhaled steroids; Z79.899 Other long term (current) drug therapy; D69.6 Thrombocytopenia, unspecified; E78.5 Hyperlipidemia, unspecified; F25.9 Schizoaffective disorder, unspecified; F19.90 Other psychoactive substance use, unspecified, uncomplicated; L89.156 Pressure-induced deep tissue damage of sacral region; I48.0 Paroxysmal atrial fibrillation; E88.09 Other disorders of plasma-protein metabolism, not elsewhere classified; F01.50 Vascular dementia, unspecified severity, without behavioral disturbance, psychotic disturbance, mood disturbance, and anxiety; I35.0 Nonrheumatic aortic (valve) stenosis; D64.9 Anemia, unspecified
CPT/HCPCS: 36415; 36600; 71045-TC; 80048-TC; 80053-TC; 80061-TC; 80076-TC; 80202-TC; 82803-TC; 82962-TC; 83540-TC; 83605-TC; 83735-TC; 84100-TC; 84443-TC; 84484-TC; 85025-TC; 85610-TC; 85730-TC; 86706; 87040-TC; 87081-TC; 87086-TC; 87186-TC; 87340; 90935-TC; 92526; 92611-TC; 93307-TC; 94760-TC; 94762-TC; 94799-TC; A4216; A4349; C9803; G0378; J0282; J1644; J1815; J2185; J2250; J2405; J2543; J3010; J3370; J3490; J7030; J7050; J7060; P9047; Q9967